=== PATIENT | female | born 1980 | race Caucasian/White ===

== ENCOUNTER 2023-05-04 11:33 | Outpatient (OUT) | payer BC, SELFPAY ==
[2023-05-04 12:20] LABS: Basophils Percent Auto 0.7 % (0.2-2.0); Eosinophils Absolute Auto 0.2 10^3/uL (0.0-0.7); Eosinophils Percent Auto 3.6 % (0.9-7.0); Hemoglobin 12.9 g/dL (12.0-16.0); Immature Granulocytes Abs Auto 0.03 10^3/uL (0.00-0.03); Immature Granulocytes Pct Auto 0.5 % (0.0-0.5); Lymphocytes Absolute Auto 1.6 10^3/uL (1.2-3.8); Lymphocytes Percent Auto 27.9 % (20.5-60.0); Mean Corpuscular HGB Conc 33.9 g/dL (29.9-35.2); Mean Corpuscular Hemoglobin 30.9 pg (26.7-34.0); Mean Corpuscular Volume 91.1 fL (81.0-99.0); Mean Platelet Volume 10.9 fL (9.5-13.5); Monocytes Absolute Auto 0.5 10^3/uL (0.3-0.8); Monocytes Percent Auto 9.1 % (1.7-12.0); Neutrophils Absolute Auto 3.3 10^3/uL (1.4-6.5); Neutrophils Percent Auto 58.2 % (43.0-75.0); Platelet Count 175 10^3/uL (150-450); Red Blood Count 4.17 10^6/uL (4.20-5.40); Red Cell Distribution Width 12.6 % (11.0-15.0); White Blood Count 5.6 10^3/uL (4.0-11.0)
[2023-05-04 13:24] LABS: Alanine Aminotransferase 9 U/L (14-59); Albumin Globulin Ratio 1.2; Alkaline Phosphatase 53 U/L (46-116); Anion Gap 14.4; BUN Creatinine Ratio 15.6; Bilirubin Total 0.3 mg/dL (0.2-1.0); Carbon Dioxide 24.5 mmol/L (21.0-32.0); Chloride 103 mmol/L (98-107); Chol HDL Ratio 5.1; Cholesterol 183 mg/dL (<=200); Estimated GFR (African America >60 (>=60); Estimated GFR (Non-African Ame >60 (>=60); Globulin 3.4 g/dL; Glucose 97 mg/dL (74-106); HDL Cholesterol 36 mg/dL (40-60); Potassium 3.9 mmol/L (3.5-5.1); Sodium 138 mmol/L (136-145); Thyroid Stimulating Hormone 0.525 uIU/mL (0.358-3.740); Total Protein 7.4 g/dL (6.4-8.2); Triglycerides 375 mg/dL (<=150)
[2023-05-04 14:08] LABS: Aspartate Amino Transferase <5 U/L (15-37)
[2023-05-04 17:04] LABS: Estimated Average Glucose 103 mg/dL; Glycohemoglobin A1C 5.2 % (4.5-6.2)
== END 2023-05-04 11:34 | disposition home or self-care (01) ==
LOC: LAB 11:37
PROVIDERS: PCP Internal Medicine; Visit Provider Internal Medicine
DX: Z00.00 Encounter for general adult medical examination without abnormal findings (principal)
CPT/HCPCS: 36415; 80053; 80061; 83036; 84443; 85025

== ENCOUNTER 2024-01-28 12:53 | Outpatient (OUT) | payer BC, SELFPAY ==
--- NOTE | 2024-01-28 12:55 | MM_ITS ---
Patient Name: KARIS BLOUNT MR#: [id number] : 1980 Exam Date: 01/28/2024 Ordering Doctor: DR Bennett Barrios D.O. RADIOLOGY REPORT PROCEDURE: MM TOMOSYNTHESIS SCREENING BI COMPARISON: MG MAMM SCREEN 3D ZAKI CAD, 12/04/2022. MG MAMM SCREEN 3D ZAKI CAD, 11/20/2021. MG MAMM SCREEN ZAKI W CAD, 11/14/2020. MG MAMM ZAKI SCRN W CAD DIG, 07/29/2016. INDICATIONS: screening Calculator Name NCI Breast Cancer Risk Assessment Tool 5 Year Breast Cancer Risk 0.90% Lifetime Breast Cancer Risk 8.40% Personal Breast Cancer No Personal Ovarian Cancer No Treatments removal with radiation Family Cancers Grandmother-maternal with breast cancer at age 50; Son with brain cancer at age 5. LOCATION: [facility] BREAST COMPOSITION: Heterogeneously dense,which may obscure small masses. FINDINGS: DIAGNOSTIC CATEGORY 2--BENIGN FINDING: RIGHT BREAST: No significant suspicious finding. Scattered benign-appearing lymph nodes are present. This exam includes additional mammographic views for implant evaluation and shows no visible implant abnormality. No significant change has occurred. LEFT BREAST: No significant suspicious finding. Scattered benign-appearing lymph nodes are present. This exam includes additional mammographic views for implant evaluation and shows no visible implant abnormality. No significant change has occurred. RECOMMENDATIONS: ROUTINE MAMMOGRAM AND CLINICAL EVALUATION IN 12 MONTHS. PLEASE NOTE: A NORMAL MAMMOGRAM DOES NOT EXCLUDE THE POSSIBILITY OF BREAST CANCER. A CLINICALLY SUSPICIOUS PALPABLE LUMP SHOULD BE BIOPSIED. Dictated by: Rodolfo Saleh M.D. on 01/29/2024 at 13:46 Approved by: Rodolfo Saleh M.D. on 01/29/2024 at 13:50
== END 2024-01-28 12:54 | disposition home or self-care (01) ==
LOC: MAMMO 12:53
PROVIDERS: PCP Internal Medicine; Visit Provider Internal Medicine
DX: Z12.31 Encounter for screening mammogram for malignant neoplasm of breast (principal); Z80.3 Family history of malignant neoplasm of breast; Z80.8 Family history of malignant neoplasm of other organs or systems
CPT/HCPCS: 77063; 77067

== ENCOUNTER 2024-06-27 08:32 | Outpatient (OUT) | payer BC, SELFPAY ==
[2024-06-27 09:00] LABS: Basophils Percent Auto 0.5 % (0.2-2.0); Eosinophils Absolute Auto 0.1 10^3/uL (0.0-0.7); Eosinophils Percent Auto 1.9 % (0.9-7.0); Hematocrit 38.2 % (36.0-48.0); Immature Granulocytes Abs Auto 0.02 10^3/uL (0.00-0.03); Immature Granulocytes Pct Auto 0.3 % (0.0-0.5); Lymphocytes Absolute Auto 1.6 10^3/uL (1.2-3.8); Mean Corpuscular Hemoglobin 31.4 pg (26.7-34.0); Mean Corpuscular Volume 92.3 fL (81.0-99.0); Mean Platelet Volume 11.2 fL (9.5-13.5); Monocytes Absolute Auto 0.5 10^3/uL (0.3-0.8); Monocytes Percent Auto 8.2 % (1.7-12.0); Neutrophils Absolute Auto 3.6 10^3/uL (1.4-6.5); Neutrophils Percent Auto 61.1 % (43.0-75.0); Platelet Count 194 10^3/uL (150-450); Red Blood Count 4.14 10^6/uL (4.20-5.40); Red Cell Distribution Width 12.7 % (11.0-15.0); White Blood Count 5.8 10^3/uL (4.0-11.0)
[2024-06-27 09:04] LABS: Estimated Average Glucose 103 mg/dL; Glycohemoglobin A1C 5.2 % (4.5-6.2)
[2024-06-27 10:18] LABS: Alanine Aminotransferase 20 U/L (14-59); Albumin Globulin Ratio 1.2; Alkaline Phosphatase 51 U/L (46-116); Anion Gap 11.9; Aspartate Amino Transferase 9 U/L (15-37); BUN Creatinine Ratio 20.9; Bilirubin Total 0.4 mg/dL (0.2-1.0); Chloride 100 mmol/L (98-107); Chol HDL Ratio 4.1; Cholesterol 181 mg/dL (<=200); Estimated GFR (African America >60 (>=60); Estimated GFR (Non-African Ame >60 (>=60); Globulin 3.4 g/dL; Glucose 93 mg/dL (74-106); HDL Cholesterol 44 mg/dL (40-60); Potassium 3.9 mmol/L (3.5-5.1); Sodium 135 mmol/L (136-145); Thyroid Stimulating Hormone 0.267 uIU/mL (0.358-3.740); Total Protein 7.4 g/dL (6.4-8.2); Triglycerides 247 mg/dL (<=150); VLDL CHOLESTEROL 49.4 mg/dL
== END 2024-06-27 08:33 | disposition home or self-care (01) ==
LOC: LAB 08:34
PROVIDERS: PCP Internal Medicine; Visit Provider Internal Medicine
DX: Z00.00 Encounter for general adult medical examination without abnormal findings (principal)
CPT/HCPCS: 36415; 80053; 80061; 83036; 84443; 85025

== ENCOUNTER 2024-07-19 10:36 | Outpatient (OUT) | payer BC, SELFPAY ==
--- NOTE | 2024-07-19 10:44 | US_ITS ---
The [address] [address] Patient Name: KARIS BLOUNT MRN: [id number] date: 1980 Sex: F Assigned Patient Location: US Current Patient Location: US Accession/Order Number: [id number] Exam Date: 07/19/2024 10:55 Report Date: 07/19/2024 14:23 At the request of: MIKHAIL FIERRO Procedure: US pelvis w/ transvaginal EXAMINATION: US pelvis w/ transvaginal HISTORY: Pain In Pelvis, Presence Of Intrauterine Contraceptive Devic COMPARISON: No relevant comparison available. FINDINGS: The uterus is normal in size, contour and echotexture measuring 9.9 x 5.0 x 4.4 cm. No focal myometrial mass. Endometrium measures 6.6 mm, normal. Normally positioned IUD The right ovary is normal in size measuring 3.6 x 2.8 x 2.4 cm. Normal color and Doppler flow. Area of anechoic echogenicity measuring 2 cm, simple cyst The left is normal in size measuring 3.1 x 2.8 x 1.8 cm. Normal color and Doppler flow. No free fluid US/US pelvis w/ transvaginal IMPRESSION: Normally positioned IUD Electronically authenticated by: ILAN CEJA Date: 07/19/2024 14:23
--- OUTSIDE RECORDS SUMMARY | 2024-07-19 10:55 | XMS_ITS | CCD ---
Author Organization [facility] Care Team Providers Care Press Worker Helper Name Role Phone WILLIAM ALFORD Unavailable Unavailabl BENNETT Jo Unavailable Unavailable BALL, DR ELIZONDO Admitting Unavailable BALL, DR ELIZONDO Attending Unavailable BALL, DR ELIZONDO Primary Care Unavailable BALL, DR ELIZONDO Consulting Unavailable WEST, DR ILAN Vines Consulting Unavailable BALL, DR ELIZONDO Admitting Unavailable BALL, DR ELIZONDO Attending Unavailable BALL, DR ELIZONDO Primary Care Unavailable BALL, DR ELIZONDO Consulting Unavailable BALL, DR ELIZONDO Admitting Unavailable BALL, DR ELIZONDO Attending Unavailable BALL, DR ELIZONDO Primary Care Unavailable BALL, DR ELIZONDO Consulting Unavailable ZieberRodolfo Consulting Unavailable GUS, LUKE Admitting Unavailable GUS, LUKE Attending Unavailable BALL, DR ELIZONDO Primary Care Unavailable GUS, LUKE Consulting Unavailable Ball, Bennett Unavailable Allergies Allergy Classification Reported Allergen(s) Allergy Type Date of Onset Reaction(s) Facility (1 source) Penicillins Drug allergy (disorder) 6 [facility] Repository (8 sources) penicillAMINE Drug Allergy [facility] [employer] Other (4 sources) Penicillin Drug Allergy 5 [facility] [employer] Other Medications Current Medications Medication Drug Class(es) Dates Sig (Normalized) Sig (Original) atenolol 50 mg oral tablet (12 sources) beta-Adrenergic Blossom Start: 05-31-2024 take 1 tablet by mouth twice daily Atenolol Active 0 .ROUTE .COMPLEX 180 May 31, 2024 12:53pm TAKE 1 TABLET BY MOUTH TWICE DAILY Start: 04-22-2024 End: 05-31-2024 take 50 mg by mouth twice daily Atenolol Discontinued 50 MG PO Twice daily April 22, 2024 7:47am May 31, 2024 12:53pm Start: 03-30-2024 End: 04-22-2024 take 1 tablet by mouth twice daily Atenolol Discontinued 0 .ROUTE .COMPLEX 180 March 30, 2024 12:54pm April 22, 2024 7:47am TAKE 1 TABLET BY MOUTH TWICE DAILY Start: 03-30-2024 End: 03-30-2024 take 50 mg by mouth twice daily Atenolol Discontinued 50 MG PO Twice daily March 30, 2024 12:00am March 30, 2024 12:54pm take 1 tablet by ju th twice daily Atenolol 50 MG TAKE 1 TABLET BY MOUTH TWICE A DAY for 90 days Active levothyroxine sodium 0.2 mg oral tablet (16 sources) l-Thyroxine Start: 04-22-2024 take 1 tablet by mouth once daily Levothyroxine Active 0 .ROUTE .COMPLEX 90 April 22, 2024 9:11am TAKE 1 TABLET BY MOUTH ONCE DAILY ON AN EMTPY STOMACH Start: 04-22-2024 End: 04-22-2024 take 200 ug by mouth once daily Levothyroxine Discontinued 200 MCG PO Daily April 22, 2024 12:00am April 22, 2024 9:11am Levothyroxine So dium 200 MCG TAKE 1 TABLET DAILY ON AN EMTPY STOMACH Orally Once a day for 90 days Active Levothyroxine So dium 200 MCG TAKE 1 (ONE) TABLET DAILY ON AN EMTPY STOMACH Active zolpidem tartrate 10 mg oral tablet (9 sources) gamma-Aminobutyric Acid-ergic Agonist Start: 04-22-2024 take 10 mg by mouth once daily at bedtime Zolpidem Active 10 MG PO Daily at bedtime April 22, 2024 12:00am Start: 11-10-2023 take 1 tablet by ju th once daily at bedtime Zolpidem Tartrate 10 MG TAKE 1 TABLET BY MOUTH AT BEDTIME Orally Once a day for 90 days Oct, Active Start: 11-08-2023 take 1 tablet by uj th once daily at bedtime Zolpidem Tartrate 10 MG TAKE 1 TABLET BY MOUTH AT BEDTIME Orally Once a day for 90 days Oct, Active Start: 10-21-2023 take 1 tablet by ju th once daily at bedtime Zolpidem Tartrate 10 MG TAKE 1 TABLET BY MOUTH AT BEDTIME Orally Once a day for 90 days 03 Umer, 2024 Active Start: 01-25-2023 take 1 tablet by mouth at bedt samina Zolpidem Tartrate 10 MG TAKE 1 TABLET BY MOUTH AT BEDTIME for 90 Jan, Active take 1 tablet by ju th every twenty-four hours Zolpidem Tartrate 10 MG 1 tablet at bedtime as needed Orally Once a day Active Completed/Discontinued Medications Medication Drug Class(es) Dates Sig (Normalized) Sig (Original) ciprofloxacin 3 mg/ml ophthalmic solution (8 sources) Quinolone Antimicrobial Start: 11-26-2022 Ciprofloxacin HCl 0.3 % 2 gtt Ophthalmic qid for 7 days Nov, Not-Taking/PRN Start: 11-26-2022 Ciprofloxacin HCl 0.3 % 2 gtt Ophthalmic qid for 7 days Nov, Not-Taking cyclobenzaprine hydrochloride 10 mg oral tablet (8 sources) Muscle Relaxant Start: 07-02-2021 Flexeril 10mg 1 Oral tid prn Take as needed for back pain and spasms. Jun, Not-Taking/PRN ibuprofen 600 mg oral tablet (8 sources) Nonsteroidal Anti-inflammatory Drug Start: 07-02-2021 take 1 tablet by mouth three times daily at mealtime as needed Ibuprofen 600 MG 1 tablet with food or milk as needed Orally Three times a day for 10 day(s) as needed for pain Jun, Not-Taking/PRN lidocaine 0.05 mg/mg medicated patch (8 sources) Antiarrhythmic, Amide Local Anesthetic Start: 07-02-2021 Lidocaine 5 % 1 patch remove after 12 hours Externally Once a day for 10 day(s) as needed for back pain Jun, Not-Taking/PRN predniSONE 20 mg oral tablet (8 sources) Start: 07-02-2021 take 1 tablet by mouth every twelve hours predniSONE 20 MG 1 tablet Orally bid for 5 day(s) Jun, Not-Taking/PRN Toradol 30 mg/ml (8 sources) Start: 07-02-2021 Toradol 30 mg/ml Jun, 30 mg Triamcinolone (8 sources) Corticosteroid Start: 07-02-2021 KENALOG - 10 mg Jun, 40 mg Problems Active Problems Problem Classification Problem Date Documented Date Episodic/Chronic Abdominal pain (1 source) Pain in pelvis; Translations: [Pelvic and perineal pain] 07-13-2024 Episodic Anxiety disorders (12 sources) Generalized anxiety disorder; Translations: [Generalized anxiety disorder] Chronic Cardiac dysrhythmias (15 sources) Intermittent palpitations; Translations: [Palpitations] Episodic Complications of surgical procedures or medical care (13 sources) Postoperative hypothyroidism; Translations: [Postprocedural hypothyroidism] Chronic Disorders of lipid metabolism (16 sources) Hypertriglyceridemia ; Translations: [Pure hyperglyceridemia] Onset: 07-31-2016 Chronic Inflammation; infection of eye (except that caused by tuberculosis or sexually transmitteddisease) (5 sources) Unspecified acute conjunctivitis, bilateral; Translations: [Acute conjunctivitis] Episodic Miscellaneous mental health disorders (4 sources) Primary insomnia; Translations: [Primary insomnia] Chronic Other non-traumatic joint disorders (8 sources) Arthralgia of the pelvic region and thigh; Translations: [Pain in right hip] Episodic Other non-traumatic joint disorders (4 sources) Pain in right hip joint; Translations: [Pain in right hip] Episodic Other nutritional; endocrine; and metabolic disorders (4 sources) Overweight; Translations: [Overweight] Episodic Other nutritional; endocrine; and metabolic disorders (1 source) Overweight Episodic Other screening for suspected conditions (not mental disorders or infectious disease) (13 sources) Encounter for screening mammogram for malignant neoplasm of breast; Translations: [Abnormal findings on diagnostic imaging of breast] Onset: 07-29-2016 Episodic Residual codes; unclassified (1 source) Family history of malignant neoplasm of breast; Translations: [FAMILY HX MALIG NEOPLASM OF BREAST] Onset: 12-09-2022 Episodic Residual codes; unclassified (1 source) Family history of malignant neoplasm of other organs or systems; Translations: [FAM HX MALIG NEOPLASM OTH ORGN/SYS] Onset: 12-09-2022 Episodic Spondylosis; intervertebral disc disorders; other back problems (4 sources) Low back pain; Translations: [Low back pain, unspecified] Episodic Thyroid disorders (6 sources) Hypothyroidism; Translations: [Hypothyroidism, unspecified] Onset: 08-02-2014 06-05-2024 Chronic Unclassified (2 sources) CONTACT W/AND (SUSP) EXPOS COVID-19; Translations: [CONTACT W/AND (SUSP) EXPOS COVID-19] Onset: 10-15-2022 Viral infection (1 source) COVID-19; Translations: [COVID-19] Onset: 10-15-2022 Past or Other Problems Problem Classification Problem Date Documented Date Episodic/Chronic Fracture of lower limb (4 sources) Closed fracture of phalanx of foot; Translations: [Displaced fracture of proximal phalanx of right lesser toe(s), initial encounter for closed fracture] Onset: 05-10-2018 Episodic Immunizations and screening for infectious disease (1 source) Encounter for screening for human papillomavirus (HPV); Translations: [Encounter for screening for human papillomavirus (HPV)] Onset: 07-21-2017 Episodic Medical examination/evaluatio n (1 source) Encounter for gynecological examination (general) (routine) without abnormal findings; Translations: [Encounter for gynecological examination (general) (routine) without abnormal findings] Onset: 07-21-2017 Episodic Other connective tissue disease (4 sources) Pain in limb; Translations: [Pain in right toe(s)] Onset: 05-10-2018 Episodic Other non-traumatic joint disorders (4 sources) Pain in right hip; Translations: [PAIN IN RIGHT HIP] Onset: 2022 Episodic Unclassified (1 source) CONTACT W/AND (SUSP) EXPOS COVID-19; Translations: [CONTACT W/AND (SUSP) EXPOS COVID-19] Onset: 10-07-2022 Results Test Name Value Interpretation Reference Range Facility Basophils Auto (Bld) [#/Vol] on 06-27-2024 Basophils (Bld) [#/Vol] 0.0 10 3/uL 0.0-0.1 [facility] Basophils/100 WBC Auto (Bld) on 06-27-2024 Basophils/100 WBC (Bld) 0.5 % 0.2-2.0 [facility] Cholesterol in LDL Calc [Mas s/Vol]on 06-27-2024 Cholesterol in LDL [Mass/Vol] 88.0 mg/dL [facility] Comment on above: <100 mg/dl [id number] 0-129 mg/dl NEAR OR ABOVE [id number] mg/dl BORDERLINE [id number] mg/dl HIGH>190 mg/dl VERY HIGH Cholesterol in VLDL Calc [Ma ss/Vol]on 06-27-2024 Cholesterol in VLDL [Mass/Vol] 49.4 mg/dL [facility] Eosinophils/100 WBC Auto (Bl d)on 06-27-2024 Eosinophils/100 WBC (Bld) 1.9 % 0.9-7.0 [facility] Erythrocyte distribution wid th Auto (RBC) [Ratio]on 06-27-2024 Erythrocyte distribution width (RBC) [Ratio] 12.7 % 11.0-15.0 [facility] Estimated glomerular filtrat ion rate (GFR) non- Americanon 06-27-2024 GFR/1.73 sq M.predicted among non-blacks MDRD (S/P/Bld) [Vol rate/Area] mL/min/{1.73_m2} >=60 [facility] Globulin Calc (S) [Mass/Vol] on 06-27-2024 Globulin (S) [Mass/Vol] 3.4 g/dL [facility] Glucose mean value [Mass/vol ume] in Blood Estimated from glycated hemoglobinon 06-27-2024 Average glucose Estimated from glycated hemoglobin (Bld) [Mass/Vol] 103 mg/dL [facility] Hematocrit Auto (Bld) [Volum e fraction]on 06-27-2024 Hematocrit (Bld) [Volume fraction] 38.2 % 36.0-48.0 [facility] Hemoglobin [Mass/volume] in Bloodon 06-27-2024 Hemoglobin (Bld) [Mass/Vol] 13.0 g/dL 12.0-16.0 [facility] Laboratory - Chemistry and C hemistry - challengeon 06-27-2024 Albumin [Mass/Vol] 4.0 g/dL 3.4-5.0 [facility] ALP [Catalytic activity/Vol] 51 U/L 46-116 [facility] ALT [Catalytic activity/Vol] 20 U/L 14-59 [facility] AST [Catalytic activity/Vol] 9 U/L Low 15-37 [facility] Bilirubin [Mass/Vol] 0.4 mg/dL 0.2-1.0 [facility] Calcium [Mass/Vol] 9.0 mg/dL 8.5-10.1 [facility] Chloride [Moles/Vol] 100 mmol/L 98-107 [facility] Cholesterol [Mass/Vol] 181 mg/dL <=200 [facility] Cholesterol in HDL [Mass/Vol] 44 mg/dL 40-60 [facility] Comment on above: > or =60 mg/dl - LOW CARDIOVASCULAR RISK<40 mg/dl - HIGH CARDIOVASCULAR RISK CO2 [Moles/Vol] 27.0 mmol/L 21.0-32.[address] [facility] Creatinine [Mass/Vol] 0.67 mg/dL 0.55-1.02 [facility] GFR/1.73 sq M.predicted MDRD (S/P/Bld) [Vol rate/Area] mL/min/{1.73_m2} >=60 [facility] Glucose [Mass/Vol] 93 mg/dL 74-106 [facility] Potassium [Moles/Vol] 3.9 mmol/L 3.5-5.1 [facility] Protein [Mass/Vol] 7.4 g/dL 6.4-8.2 [facility] Sodium [Moles/Vol] 135 mmol/L Low 136-145 [facility] Triglyceride [Mass/Vol] 247 mg/dL High <=150 [facility] TSH Qn 0.267 m[IU]/L Low 0.358-3.74 0 [facility] Urea nitrogen [Mass/Vol] 14.0 mg/dL 7.0-18.0 [facility] Urea nitrogen/Creatini ne [Mass ratio] 20.9 mg/mg [facility] Laboratory - Hematology and Cell countson 06-27-2024 HbA1c (Bld) [Mass fraction] 5.2 % 4.5-6.2 [facility] Comment on above: ADA RECOMMENDED LIMI T 4.0 - 6.0ADA THERAPEUTIC TARGET < 7.0ACTION SUGGESTED> 7.0 Immature granulocytes/100 WBC (Bld) 0.3 % 0.0-0.5 [facility] Leukocytes [#/volume] correc adrián for nucleated erythrocytes in Blood by Automated counon 06-27-2024 WBC corrected for nucl RBC Auto (Bld) [#/Vol] 5.8 10 3/uL 4.0-11.0 [facility] Lymphocytes Auto (Bld) [#/Vo l]on 06-27-2024 Lymphocytes (Bld) [#/Vol] 1.6 10 3/uL 1.2-3.8 [facility] Lymphocytes/100 WBC Auto (Bl d)on 06-27-2024 Lymphocytes/100 WBC (Bld) 28.0 % 20.5-60.0 [facility] MCH Auto (RBC) [Entitic mass ]on 06-27-2024 MCH (RBC) [Entitic mass] 31.4 pg 26.7-34.0 [facility] MCHC Auto (RBC) [Mass/Vol]on 06-27-2024 MCHC (RBC) [Mass/Vol] 34.0 g/dL 29.9-35.2 [facility] MCV Auto (RBC) [Entitic vol] on 06-27-2024 MCV (RBC) [Entitic vol] 92.3 fL 81.0-99.0 [facility] Monocytes Auto (Bld) [#/Vol] on 06-27-2024 Monocytes (Bld) [#/Vol] 0.5 10 3/uL 0.3-0.8 [facility] Monocytes/100 WBC Auto (Bld) on 06-27-2024 Monocytes/100 WBC (Bld) 8.2 % 1.7-12.0 [facility] Neutrophils Auto (Bld) [#/Vo l]on 06-27-2024 Neutrophils (Bld) [#/Vol] 3.6 10 3/uL 1.4-6.5 [facility] Neutrophils/100 WBC Auto (Bl d)on 06-27-2024 Neutrophils/100 WBC (Bld) 61.1 % 43.0-75.0 [facility] No Panel Informationon 06-27 Eosinophils # (Auto) 0.1 10 3/uL 0.0-0.7 [facility] Immature Granulocyte # (Auto) 0.02 10 3/uL 0.00-0.03 [facility] Platelet mean volume Auto (B ld) [Entitic vol]on 06-27-2024 Platelet mean volume (Bld) [Entitic vol] 11.2 fL 9.5-13.5 [facility] Platelets Auto (Bld) [#/Vol] on 06-27-2024 Platelets (Bld) [#/Vol] 194 10 3/uL 150-450 [facility] RBC Auto (Bld) [#/Vol]on RBC (Bld) [#/Vol] 4.14 10 6/uL Low 4.20-5.40 [facility] Serum or plasma albumin/glob ulin mass ratioon 06-27-2024 Albumin/Globulin [Mass ratio] 1.2 {ratio} [facility] Serum or plasma anion gap de terminationon 06-27-2024 Anion gap [Moles/Vol] 11.9 mmol/L [facility] Serum or plasma total choles terol/high density lipoprotein (HDL) cholesterol mass evelyne 06-27-2024 Cholesterol.total /Cholesterol in HDL [Mass ratio] 4.1 {ratio} [facility] Comment on above: 3.3 - 4.4 LOW RISK4. 4 - 7.1 AVERAGE RISK7.1 - 11.0 MODERATE RISK>11.0 HIGH RISK MG MAMM SCREEN 3D ZAKI CADon 12-04-2022 MG MAMM SCREEN 3D ZAKI CAD Patient: RADHA BLOUNT Exam Date: 12/04/2022 : 1980 Gender:F Ordering : DR BENNETT FIERRO D.O. Admission #: [id number] Family : Order #: [id number] CLICK HERE TO VIEW EXAM RADIOLOGY REPORT PROCEDURE: MAMMOGRAM SCREENING 3D BILATERAL CAD COMPARISON: MG MAMM SCREEN ZAKI W CAD, 11/14/2020. MG MAMM SCREEN 3D ZAKI CAD, 11/20/2021. INDICATIONS: Screening mammography Calculator Name NCI Breast Cancer Risk Assessment Tool 5 Year Breast Cancer Risk 0.90% Lifetime Breast Cancer Risk 8.60% Personal Breast Cancer No Personal Ovarian Cancer No Treatments removal with radiation Family Cancers Grandmother-maternal with breast cancer at age 50; Son with brain cancer at age 5. LOCATION: [facility] BREAST COMPOSITION: Heterogeneously dense,which may obscure small masses. FINDINGS: DIAGNOSTIC CATEGORY 2--BENIGN FINDING. NO CHANGE FROM COMPARISON. Scattered benign-appearing nodules are present. Scattered benign-appearing calcifications are present. Scattered benign-appearing lymph nodes are present. This exam includes additional mammographic views for implant evaluation and shows no visible implant abnormality. RIGHT BREAST: No significant suspicious finding. LEFT BREAST: No significant suspicious finding. RECOMMENDATIONS: ROUTINE MAMMOGRAM AND CLINICAL EVALUATION IN 12 MONTHS. PLEASE NOTE: A NORMAL MAMMOGRAM DOES NOT EXCLUDE THE POSSIBILITY OF BREAST CANCER. A CLINICALLY SUSPICIOUS PALPABLE LUMP SHOULD BE BIOPSIED. Dictated by: Ilan Perdue MD on 12/04/2022 at 12:46 Approved by: Ilan Perdue MD on 12/04/2022 at 12:49 Normal [facility] MG MAMM SCREEN 3D ZAKI CAD [employer] Other Covid-19 PCR (CVDTB)on 09-19 SARS-CoV-2 (COVID-19) RNA ENEDELIA+probe Ql (Unsp spec) Detected Critically abnormal NOT DETECTED [facility] Comment on above: Result Comment: This test is not yet approved or cleared by the [place] FDA. When there are no FDA-approved or cleared tests available, and other criteria are met, FDA can make tests available under an emergency access mechanism called an Emergency Use Authorization (EUA). The EUA for this test is supported by the [place] of Health and Human Service's declaration that circumstances exist to justify the emergency use of in vitro diagnostics for the detection and/or diagnosis of the virus that causes COVID-19. This EUA will remain in effect for the duration of the COVID-19 declaration justifying emergency of IVDs, unless it is terminated or revoked by the FDA (after which the test may no longer be used). Performed By: #### C VDTBH #### [facility] [address] [place] [address] Dr. Billy Johnson CBC AUTO DIFFon 05-12-2022 BASO # 0.1 103/ul Normal 0.0-0.1 [facility] Comment on above: Performed By: #### C BC #### [facility] [address] [place] [address] Dr. Billy Johnson Basophils/100 WBC (Bld) 0.9 % Normal 0.2-2.0 [facility] Comment on above: Performed By: #### C BC #### [facility] [address] [place] [address] Dr. Billy Johnson EO # 0.2 103/ul Normal 0.0-0.7 [facility] Comment on above: Performed By: #### C BC #### [facility] [address] [place] [address] Dr. Billy Johnson Eosinophils/100 WBC (Bld) 3.6 % Normal 0.9-7.0 [facility] Comment on above: Performed By: #### C BC #### [facility] [address] [place] [address] Dr. Billy Johnson Erythrocyte distribution width (RBC) [Ratio] 12.9 % Normal 11.0-15.0 [facility] Comment on above: Performed By: #### C BC #### [facility] [address] [place] [address] Dr. Billy Johnson Hematocrit (Bld) [Volume fraction] 38.9 % Normal 36.0-48.0 [facility] Comment on above: Performed By: #### C BC #### [facility] [address] [place] [address] Dr. Billy Johnson Hemoglobin (Bld) [Mass/Vol] 13.0 g/dL Normal 12.0-16.0 [facility] Comment on above: Performed By: #### C BC #### [facility] [address] [place] [address] Dr. Billy Johnson IG # 0.02 10e3/ul Normal 0.00-0.03 [facility] Comment on above: Performed By: #### C BC #### [facility] [address] [place] [address] Dr. Billy Johnson IG % 0.4 % Normal 0.0-0.5 [facility] Comment on above: Performed By: #### C BC #### [facility] [address] [place] [address] Dr. Billy Johnson LYMPH # 1.7 103/ul Normal 1.2-3.8 [facility] Comment on above: Performed By: #### C BC #### [facility] [address] [place] [address] Dr. Billy Johnson Lymphocytes/100 WBC (Bld) 30.6 % Normal 20.5-60.0 [facility] Comment on above: Performed By: #### C BC #### [facility] [address] [place] [address] Dr. Billy Johnson MANUAL DIFF REQ NO Normal [facility] Comment on above: Performed By: #### C BC #### [facility] [address] [place] [address] Dr. Billy Johnson MCH (RBC) [Entitic mass] 31.0 pg Normal 26.7-34.0 [facility] Comment on above: Performed By: #### C BC #### [facility] [address] [place] [address] Dr. Billy Johnson MCHC (RBC) [Mass/Vol] 33.4 g/dL Normal 29.9-35.2 [facility] Comment on above: Performed By: #### C BC #### [facility] [address] [place] [address] Dr. Billy Johnson MCV (RBC) [Entitic vol] 92.8 fL Normal 81.0-99.0 [facility] Comment on above: Performed By: #### C BC #### [facility] [address] [place] [address] Dr. Billy Johnson MONO # 0.5 103/ul Normal 0.3-0.8 [facility] Comment on above: Performed By: #### C BC #### [facility] [address] [place] [address] Dr. Billy Johnson Monocytes/100 WBC (Bld) 8.0 % Normal 1.7-12.0 [facility] Comment on above: Performed By: #### C BC #### [facility] [address] [place] [address] Dr. Billy Johnson NEUT # 3.2 103/ul Normal 1.4-6.5 [facility] Comment on above: Performed By: #### C BC #### [facility] [address] [place] [address] Dr. Billy Johnson Neutrophils/100 WBC (Bld) 56.5 % Normal 43.0-75.0 [facility] Comment on above: Performed By: #### C BC #### [facility] [address] [place] [address] Dr. Billy Johnson Platelet mean volume (Bld) [Entitic vol] 10.9 fL Normal 9.5-13.5 [facility] Comment on above: Performed By: #### C BC #### [facility] [address] [place] [address] Dr. Billy Johnson PLT 175 103/ul Normal 150-450 [facility] Comment on above: Performed By: #### C BC #### [facility] [address] [address] [address] Billy Johnson RBC 4.19 106/ul Critically low 4.20-5.40 [facility] Comment on above: Performed By: #### C BC #### [facility] [address] [address] [address] Billy Johnson WBC 5.6 103/ul Normal 4.0-11.0 [facility] Comment on above: Performed By: #### C BC #### [facility] [address] [address] [address] Billy Johnson GLYCOHEMOGLOBIN A1Con 2021 ADA RECOMMENDATION SEE BELOW Normal [facility] Comment on above: Result Comment: ADA RECOMMENDED LIMIT 4.0 - 6.0 ADA THERAPEUTIC TARGET < 7.0 ACTION SUGGESTED > 7.0 Performed By: #### A 1C #### [facility] [address] [place] [address] Dr. Billy Johnson Glucose [Mass/Vol] 108 mg/dL Normal [facility] Comment on above: Performed By: #### A 1C #### [facility] [address] [place] [address] Dr. Billy Johnson HbA1c (Bld) [Mass fraction] 5.4 % Normal 4.5-6.2 [facility] Comment on above: Performed By: #### A 1C #### [facility] [address] [place] [address] Dr. Billy Johnson LIPID PROFILEon 05-12-2022 CHOL-HDL RATIO NORM SEE BELOW Normal [facility] Comment on above: Result Comment: 3.3 - 4.4 LOW RISK 4.4 - 7.1 AVERAGE RISK 7.1 - 11.0 MODERATE RISK >11.0 HIGH RISK Performed By: #### T SH, LIPID, CMP #### [facility] [address] [address] [address] Billy Johnson Cholesterol [Mass/Vol] 200 mg/dL Normal <=200 [facility] Comment on above: Performed By: #### T SH, LIPID, CMP #### [facility] [address] [address] [address] Billy Johnson Cholesterol in HDL [Mass/Vol] 38 mg/dL Critically low 40-60 [facility] Comment on above: Performed By: #### T SH, LIPID, CMP #### [facility] [address] [place] [address] Dr. Billy Johnson Cholesterol in LDL [Mass/Vol] 90.2 mg/dL Normal [facility] Comment on above: Performed By: #### T SH, LIPID, CMP #### [facility] [address] [place] [address] Dr. Billy Johnson Cholesterol.total /Cholesterol in HDL [Mass ratio] 5.3 {ratio} Normal [facility] Comment on above: Performed By: #### T SH, LIPID, CMP #### [facility] [address] [place] [address] Dr. Billy Johnson HDL NORMAL > or = 60 mg/dl - LO W CARDIOVASCULAR RISK <40 mg/dl - HIGH CARDIOVASCULAR RISK Normal [facility] Comment on above: Performed By: #### T SH, LIPID, CMP #### [facility] [address] [place] [address] Dr. Billy Johnson LDL CALC NORMAL SEE BELOW Normal [facility] Comment on above: Result Comment: <100 mg/dl OPTIMAL 100 - 129 mg/dl NEAR OR ABOVE OPTIMAL 130 - 159 mg/dl BORDERLINE HIGH 160 - 189 mg/dl HIGH >190 mg/dl VERY HIGH Performed By: #### T SH, LIPID, CMP #### [facility] [address] [place] [address] Dr. Billy Johnson Triglyceride [Mass/Vol] 359 mg/dL Critically high <=150 [facility] Comment on above: Performed By: #### T SH, LIPID, CMP #### [facility] [address] [address] [address] Billy Johnson VLDL CALC 71.8 mg/dL Normal [facility] Comment on above: Performed By: #### T SH, LIPID, CMP #### [facility] [address] [address] [address] Billy Johnson PROF 14(COMP METB)on 022 Albumin [Mass/Vol] 3.9 g/dL Normal 3.4-5.0 [facility] Comment on above: Performed By: #### T SH, LIPID, CMP #### [facility] [address] [address] [address] Billy Johnson Albumin/Globulin [Mass ratio] 1.2 {ratio} Normal [facility] Comment on above: Performed By: #### T SH, LIPID, CMP #### [facility] [address] [address] [address] Billy Johnson ALP [Catalytic activity/Vol] 41 U/L Critically low 46-116 [facility] Comment on above: Performed By: #### T SH, LIPID, CMP #### [facility] [address] [address] [address] Billy Johnson ALT [Catalytic activity/Vol] 18 U/L Normal 14-59 [facility] Comment on above: Performed By: #### T SH, LIPID, CMP #### [facility] [address] [address] [address] Billy Johnson Anion gap [Moles/Vol] 9.4 mmol/L Normal [facility] Comment on above: Performed By: #### T SH, LIPID, CMP #### [facility] [address] [address] [address] Billy Johnson AST [Catalytic activity/Vol] 13 U/L Critically low 15-37 [facility] Comment on above: Performed By: #### T SH, LIPID, CMP #### [facility] [address] [address] [address] Billy Johnson Bilirubin [Mass/Vol] 0.5 mg/dL Normal 0.2-1.0 [facility] Comment on above: Performed By: #### T SH, LIPID, CMP #### [facility] [address] [address] [address] Billy Johnson Calcium [Mass/Vol] 8.8 mg/dL Normal 8.5-10.1 [facility] Comment on above: Performed By: #### T SH, LIPID, CMP #### [facility] [address] [address] [address] Billy Johnson Chloride [Moles/Vol] 105 mmol/L Normal 98-107 [facility] Comment on above: Performed By: #### T SH, LIPID, CMP #### [facility] [address] [place] [address] Dr. Billy Johnson CO2 [Moles/Vol] 27.7 mmol/L Normal 21.0-32.0 [facility] Comment on above: Performed By: #### T SH, LIPID, CMP #### [facility] [address] [place] [address] Dr. Billy Johnson Creatinine [Mass/Vol] 0.67 mg/dL Normal 0.55-1.02 [facility] Comment on above: Performed By: #### T SH, LIPID, CMP #### [facility] [address] [place] [address] Dr. Billy Johnson EGFR-AF GUYANESE >60 Normal >=60 [facility] Comment on above: Performed By: #### T SH, LIPID, CMP #### [facility] [address] [place] [address] Dr. Billy Johnson EGFR-NON AF GUYANESE >60 Normal >=60 [facility] Comment on above: Performed By: #### T SH, LIPID, CMP #### [facility] [address] [place] [address] Dr. Billy Johnson Globulin (S) [Mass/Vol] 3.3 g/dL Normal [facility] Comment on above: Performed By: #### T SH, LIPID, CMP #### [facility] [address] [place] [address] Dr. Billy Johnson Glucose [Mass/Vol] 90 mg/dL Normal 74-106 [facility] Comment on above: Performed By: #### T BHANU LIPID, CMP #### [facility] [address] [place] [address] Dr. Billy Johnson Potassium [Moles/Vol] 4.1 mmol/L Normal 3.5-5.1 [facility] Comment on above: Performed By: #### T BHANU LIPID, CMP #### [facility] [address] [place] [address] Dr. Billy Johnson Protein [Mass/Vol] 7.2 g/dL Normal 6.4-8.2 [facility] Comment on above: Performed By: #### T BHANU LIPID, CMP #### [facility] [address] [place] [address] Dr. Billy Johnson Sodium [Moles/Vol] 138 mmol/L Normal 136-145 [facility] Comment on above: Performed By: #### T BHANU LIPID, CMP #### [facility] [address] [place] [address] Dr. Billy Johnson Urea nitrogen [Mass/Vol] 14.0 mg/dL Normal 7.0-18.0 [facility] Comment on above: Performed By: #### T BHANU LIPID, CMP #### [facility] [address] [place] [address] Dr. Billy Johnson Urea nitrogen/Creatini ne [Mass ratio] 20.9 mg/mg Normal [facility] Comment on above: Performed By: #### T BHANU LIPID, CMP #### [facility] [address] [place] [address] Dr. Billy Johnson TSHon 05-12-2022 TSH 1.434 uIU/mL Normal 0.358-3.74 0 [facility] Comment on above: Performed By: #### T BHANU LIPID, CMP #### [facility] [address] [place] [address] Dr. Billy Johnson Cytologyon 07-21-2017 Cytology (NOTE)[id number] LABORATORIESCONSULTING PATHOLOGISTS CORPORATIONANATOMIC [id number] [place] [phone] Fax: GYNECOLOGIC CYTOLOGY REPORTPatient Name: RADHA BLOUNTMR#: [id number] #[id number]: Cervical material, (ThinPrep vial, Imaging-assisted review)Clinical [id number] Routine manager of distribution exam without abnormal findingsHigh risk HPV DNA testing is requested if the diagnosis is [id number] Encounter for screening for HPVLMP: not having periodsINTERPRETATIONCervical material, (ThinPrep vial, Imaging-assisted review):Specimen Adequacy: Satisfactory for evaluation. - Endocervical/transformation zone component present. - Partially obscuring exudate.Descriptive Diagnosis: Negative for intraepithelial lesion or malignancy. Folder Taper Operator: MAY Cheng(ASCP)Electronically Signed Out07/28/2017 [facility] Vital Signs Date Time Vital Sign Value Performing Clinician Facility 07-13-2024 09:57-0400 Body height 176.53 cm [facility] 07-13-2024 09:57-0400 Body mass index (BMI) [Ratio] 26.3 kg/m2 [facility] 07-13-2024 09:57-0400 Body weight 82.1 kg [facility] 07-13-2024 09:57-0400 Heart rate 70 /min [facility] 07-13-2024 09:57-0400 SaO2% (BldA) [Mass fraction] 98 % [facility] 05-21-2023 10:30-0400 Body height 177.8 cm Nintu Oy Other [facility] Other 05-21-2023 10:30-0400 Body mass index (BMI) [Ratio] 26 kg/m2 Nintu Oy Other [facility] Other 05-21-2023 10:30-0400 Body weight 82.19 kg Bennett [employer] Other [facility] Other 05-21-2023 10:30-0400 Diastolic blood pressure 70 mm[Hg] Nintu Oy Other [facility] Other 05-21-2023 10:30-0400 Respiratory rate 12 /min Bennett Ball Other [facility] Other 05-21-2023 10:30-0400 Systolic blood pressure 113 mm[Hg] Bennett Ball Other [facility] Other 11-26-2022 12:45-0500 Body height 177.8 cm Bennett Ball Other [facility] Other 11-26-2022 12:45-0500 Body mass index (BMI) [Ratio] 25.57 kg/m2 Bennett Ball Other [facility] Other 11-26-2022 12:45-0500 Body weight 80.83 kg Bennett Ball Other [facility] Other 11-26-2022 12:45-0500 Diastolic blood pressure 70 mm[Hg] Bennett Ball Other [facility] Other 11-26-2022 12:45-0500 Respiratory rate 12 /min Bennett Ball Other [facility] Other 11-26-2022 12:45-0500 Systolic blood pressure 116 mm[Hg] Bennett Ball Other [facility] Other Encounters Encounter Date Encounter Type Care Provider Facility Start: 07-13-2024 End: 07-13-2024 ambulatory [facility] Work Phone: Start: 07-13-2024 End: 07-13-2024 Encounter for general adult medical examination without abnormal findings [facility] Start: 07-13-2024 End: 07-13-2024 Patient encounter procedure [facility] Work Phone: Start: 07-10-2024 Patient encounter status [facility] Start: 06-27-2024 Non-patient / Non-visit [facility] Work Phone: Start: 04-22-2024 Non-patient / Non-visit [facility] Work Phone: Start: 11-10-2023 End: 11-10-2023 ambulatory Bennett Ball Other [facility] Other Start: 11-10-2023 Telephone encounter Bennett Ball [facility] Start: 11-08-2023 End: 11-08-2023 ambulatory Bennett Ball Other [facility] Other Start: 11-08-2023 Telephone encounter Bennett Ball [facility] Start: 10-21-2023 End: 10-21-2023 ambulatory Bennett Ball Other [facility] Other Start: 10-21-2023 Telephone encounter Bennett Ball [facility] Start: 05-21-2023 End: 05-21-2023 ambulatory Bennett Ball Other [facility] Other Start: 05-21-2023 Encounter for genera l adult medical examination without abnormal findings Bennett Ball [facility] Start: 05-21-2023 Periodic preventive med est patient 40-64yrs Bennett Ball [facility] Start: 04-06-2023 End: 04-06-2023 ambulatory Bennett Ball Other [facility] Other Start: 04-06-2023 Encounter for genera l adult medical examination without abnormal findings Bennett Ball [facility] Start: 04-06-2023 Telephone encounter Bennett Ball [facility] Start: 03-19-2023 End: 03-19-2023 ambulatory Bennett Ball Other [facility] Other Start: 03-19-2023 Telephone encounter Bennett Ball [facility] Start: 12-04-2022 End: 12-05-[address] BENNETT FIERRO Facility:[facility] Start: 11-26-2022 End: 11-26-2022 ambulatory Bennett Fierro Other [facility] Other Start: 11-26-2022 Office outpatient vi sit 15 minutes Bennett Fierro [facility] Start: 11-26-2022 Telephone encounter Bennett Fierro [facility] Start: 10-07-2022 End: 10-07-2022 ambulatory LUKE GUS Facility:[facility] Start: 2022 End: 05-15-[address] BENNETT FIERRO Facility:[facility] Start: 05-13-2022 Encounter for genera l adult medical examination without abnormal findings DR BENNETT FIERRO [facility] Start: 05-13-2022 Adult health examination Bennett Fierro Other [facility] Other Start: 05-12-2022 End: 05-13-[address] BENNETT FIERRO Facility:[facility] Start: 05-12-2022 End: 05-13-2022 Encounter for general adult medical examination without abnormal findings DR BENNETT FIERRO Facility:[facility] Start: 07-21-2017 End: 07-22-2017 Ambulatory [facility] Procedures Date Procedure Procedure Detail Performing Clinician Start: 07-21-2017 Cytopathology proced ure, preparation of smear, genital source WILLIAM ALFORD Depression screening Gerardo Fierro Other Screening for malign ant neoplasm of breast Bennett Fierro Other Plan of Treatment Date Care Activity Detail Author MG Breast - bilateral Screening [facility] US Pelvis [facility] Immunizations Immunization Date Immunization Notes Care Provider Fa dusty 05-08-2021 COVID-19 Vaccine Mod caity - Documentation Purposes Only Bennett Fierro Other [facility] Payers Date Payer Category Payer Unknown [id number] 2019 Unknown [id number] 2016 Unknown [id number] 1978 Unknown [id number] [id number] [id number] 1978 Unknown [id number] [id number] [id number] 1978 Unknown [id number] 2.16.84 [id number] 1978 Unknown [id number] 2.16.84 [id number] Social History Date Type Detail Facility Unknown if ever smoked [facility] Other Sex Assigned At Sex Assigned At Bir th [facility] Other Start: 07-13-2024 Tobacco smoking status NHIS Never smoked tobacco (finding) [facility] Start: 1980 Sex Assigned At Female [facility] Evaluation note 11-10-2023 Note Date & Type Note Facility 11-10-2023 Evaluation note Encounter Date Diagnosis Assessment Notes Oct, Primary insomnia (ICD-10 - F51.01) [facility] Other Evaluation note 11-08-2023 Note Date & Type Note Facility 11-08-2023 Evaluation note Encounter Date Diagnosis Assessment Notes Oct, Primary insomnia (ICD-10 - F51.01) [facility] Other Evaluation note 05-21-2023 Note Date & Type Note Facility 05-21-2023 Evaluation note Encounter Date Diagnosis Assessment Notes May, Wellness examination (ICD-10 - Z00.00) Healthy diet and exercise. Reviewed age-appropriate preventive testing recommended. May, Intermittent palpitations (ICD-10 - R00.2) Avoid stimulants, hydrate and exercise. 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 They are instructed to reduce calories, portion sizes and snacks. It is recommended that they exercise for 30 minutes, 3-5 times weekly. May, Screening mammogram for breast cancer (ICD-10 - Z12.31) Monthly SBE and yearly mammogram May, Screening for colon cancer (ICD-10 - Z12.11) Initial screening discussed. Low risk, asymptomatic patient - denies change in appetite, weight or bowel habits - denies heartburn or dysphagia - denies melena or hematochezia [facility] Other Evaluation note 04-06-2023 Note Date & Type Note Facility 04-06-2023 Evaluation note Encounter Date Diagnosis Assessment Notes Mar, Wellness examination (ICD-10 - Z00.00) [facility] Other Evaluation note 11-26-2022 Note Date & Type Note Facility 11-26-2022 Evaluation note Encounter Date Diagnosis Assessment Notes Nov, Screening mammogram for breast cancer (ICD-10 - Z12.31) [facility] Other Evaluation note 11-26-2022 Note Date & Type Note Facility 11-26-2022 Evaluation note Encounter Date Diagnosis Assessment Notes Nov, Acute bacterial conjunctivitis of both eyes (ICD-10 - H10.33) Artificial tears as needed, stop Sulfa ophthalmic drops. Begin Ciloxan drops and if no improvement in 48-72 hours call clinical applications specialist. [facility] Other Clinical Note 05-15-2022 Note Date & Type Note Facility 05-15-2022 Note PROCEDURE: XR HIP RT 2 3V W PELVIS HISTORY: Pain in right hip joint COMPARISON: None. FINDINGS: BONES:No fracture, acute abnormality, or significant arthropathy. SOFT TISSUES:No visible soft tissue swelling. EFFUSION:None visible. OTHER: IUD within midline pelvis. IMPRESSION: 1. No abnormal findings of the right hip joint. Electronically authenticated by: RODOLFO PERAZA Date: 2022-05-15 07:36 [facility] Evaluation note Note Date & Type Note Facility Evaluation note No Information [facility] Other Evaluation note Note Date & Type Note Facility Evaluation note Diagnosis Onset Date Hypothyroid acute Palpitation acute Screening mammogram for breast cancer acute Wellness examination acute [facility] Work Phone: History general Narrative - Reported Note Date & Type Note Facility History general Narrative - Reported Type Medical History pvc's heart palpitations Medical History Acute pain of right hip Medical History PUSHPA (generalized anxiety disorde r) Medical History Intermittent palpitations Medical History Hypertriglyceridemia Medical History Hypothyroidism, postablative Surgical History C section Surgical History nose/ cancer removed Hospitalization History See Above 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 [facility] Other Summary Purpose Family History Relationship Condition Age at Onset Recorded Date/T samina father Unknown mother Hypertension Unknown son Cerebrovascular accident (CVA) Unknown Advance Directives Advance Directive Response Recorded Date/ Time Advance Directives No April 22 7:47am Chief Complaint and Reason for Visit Chief Complaint Amb Documentation Wellness Reason for Visit Hypothyroid Palpitation Screening mammogram for breast cancer Wellness examination Additional Source Comments INFORMATION SOURCE (unrecogn ized section and content) DATE CREATED AUTHOR 04/13/2018 [facility] DATE CREATED AUTHOR AUTHOR'S ORGANIZ ATION 12/10/2022 [facility] REASON FOR VISIT (unrecogniz ed section and content) [facility] OrdersWellnessRefillNo InformationNo Information Care Teams (unrecognized sec tion and content) Team Status: Active Member Role Status Dates Bennett Fierro DO Primary Care Provider Active Team Status: Active Member Role Status Dates Bennett Fierro DO Primary Care Provider Active Start: April 22, 2024 Rachel Abarca LPN Attending Provider Active St art: April 22, 2024 Team Status: Active Member Role Status Dates Bennett Fierro DO Primary Care Provide r, Attending Provider Active Start: June 27, 2024 Team Status: Inactive Member Role Status Dates Bennett Fierro DO Primary Care Provide r, Attending Provider Active Start: July 13, 2024 End: July 13, 2024 Goals (unrecognized section and content) Goals may be documented in a n alternate section FOR RECORDS PERTAINING TO PATIENTS WHO ARE OR HAVE BEEN ENROLLED IN A CHEMICAL DEPENDENCY/SUBSTANCEABUSE PROGRAM, SOME INFORMATION MAY BE OMITTED. This clinical summary was aggregated from multiple sources. Caution should be exercised in using it in the provision of clinical care. This summary normalizes information from multiple sources, and as a consequence, information in this document may materially change the coding, format and clinical context of patient data. In addition, data may be omitted in some cases. CLINICAL DECISIONS SHOULD BE BASED ON THE PRIMARY CLINICAL RECORDS. [facility] [employer] [facility]. provides no warranty or guarantee of the accuracy or completeness of information in this document.
== END 2024-07-19 10:37 | disposition home or self-care (01) ==
LOC: US 10:37
PROVIDERS: PCP Internal Medicine; Visit Provider Internal Medicine
DX: R10.2 Pelvic and perineal pain (principal); Z97.5 Presence of (intrauterine) contraceptive device
CPT/HCPCS: 76830; 76856

== ENCOUNTER 2024-12-23 10:22 | Emergency (ER) | payer OTHER, SELFPAY ==
[2024-12-23 10:26] VITALS: BP 136/82; PULSE 62; TEMP 36.6; O2SAT 97
--- OUTSIDE RECORDS SUMMARY | 2024-12-23 10:41 | XMS_ITS | CCD ---
Author Organization [facility] Care Team Providers Care Manager Management Name Role Phone WILLIAM ALFORD Unavailable Unavailabl [...] source) Penicillins Drug allergy (disorder) 6 [facility] Repository (8 sources) penicillAMINE Drug Allergy [facility] [employer] Other (4 sources) Penicillin Drug Allergy 5 [facility] [employer] Other Medications Current Medications Medication Drug Class(es) [...] Active Start: 11-08-2023 take 1 tablet by ju th once [...] Basophils (Bld) [#/Vol] 0.0 10 3/uL 0.0-0.1 [facility] Basophils/100 WBC Auto (Bld) on 06-27-2024 Basophils/100 WBC (Bld) 0.5 % 0.2-2.0 [facility] Cholesterol in LDL Calc [Mas s/Vol]on 06-27-2024 Cholesterol in LDL [Mass/Vol] 88.0 mg/dL [facility] Comment on above: <100 mg/dl [id number] 0-129 mg/dl NEAR OR ABOVE [id number] mg/dl BORDERLINE [id number] mg/dl HIGH>190 mg/dl VERY HIGH Cholesterol in VLDL Calc [Ma ss/Vol]on 06-27-2024 Cholesterol in VLDL [Mass/Vol] 49.4 mg/dL [facility] Eosinophils/100 WBC Auto (Bl d)on 06-27-2024 Eosinophils/100 WBC (Bld) 1.9 % 0.9-7.0 [facility] Erythrocyte distribution wid th Auto (RBC) [Ratio]on 06-27-2024 Erythrocyte distribution width (RBC) [Ratio] 12.7 % 11.0-15.0 [facility] Estimated glomerular filtrat ion rate (GFR) non- Americanon 06-27-2024 GFR/1.73 sq M.predicted among non-blacks MDRD (S/P/Bld) [Vol rate/Area] mL/min/{1.73_m2} >=60 [facility] Globulin Calc (S) [Mass/Vol] on 06-27-2024 Globulin (S) [Mass/Vol] 3.4 g/dL [facility] Glucose mean value [Mass/vol ume] in Blood Estimated from glycated hemoglobinon 06-27-2024 Average glucose Estimated from glycated hemoglobin (Bld) [Mass/Vol] 103 mg/dL [facility] Hematocrit Auto (Bld) [Volum e fraction]on 06-27-2024 Hematocrit (Bld) [Volume fraction] 38.2 % 36.0-48.0 [facility] Hemoglobin [Mass/volume] in Bloodon 06-27-2024 Hemoglobin (Bld) [Mass/Vol] 13.0 g/dL 12.0-16.0 [facility] Laboratory - Chemistry and C hemistry - challengeon 06-27-2024 Albumin [Mass/Vol] 4.0 g/dL 3.4-5.0 [facility] ALP [Catalytic activity/Vol] 51 U/L 46-116 [facility] ALT [Catalytic activity/Vol] 20 U/L 14-59 [facility] AST [Catalytic activity/Vol] 9 U/L Low 15-37 [facility] Bilirubin [Mass/Vol] 0.4 mg/dL 0.2-1.0 [facility] Calcium [Mass/Vol] 9.0 mg/dL 8.5-10.1 [facility] Chloride [Moles/Vol] 100 mmol/L 98-107 [facility] Cholesterol [Mass/Vol] 181 mg/dL <=200 [facility] Cholesterol in HDL [Mass/Vol] 44 mg/dL 40-60 [facility] Comment on above: > or =60 mg/dl - LOW CARDIOVASCULAR RISK<40 mg/dl - HIGH CARDIOVASCULAR RISK CO2 [Moles/Vol] 27.0 mmol/L 21.0-32.0 [facility] Creatinine [Mass/Vol] 0.67 mg/dL 0.55-1.02 [facility] GFR/1.73 sq M.predicted MDRD (S/P/Bld) [Vol rate/Area] mL/min/{1.73_m2} >=60 [facility] Glucose [Mass/Vol] 93 mg/dL 74-106 [facility] Potassium [Moles/Vol] 3.9 mmol/L 3.5-5.1 [facility] Protein [Mass/Vol] 7.4 g/dL 6.4-8.2 [facility] Sodium [Moles/Vol] 135 mmol/L Low 136-145 [facility] Triglyceride [Mass/Vol] 247 mg/dL High <=150 [facility] TSH Qn 0.267 m[IU]/L Low 0.358-3.74 0 [facility] Urea nitrogen [Mass/Vol] 14.0 mg/dL 7.0-18.0 [facility] Urea nitrogen/Creatini ne [Mass ratio] 20.9 mg/mg [facility] Laboratory - Hematology and Cell countson 06-27-2024 HbA1c (Bld) [Mass fraction] 5.2 % 4.5-6.2 [facility] Comment on above: ADA RECOMMENDED LIMI T 4.0 - 6.0ADA THERAPEUTIC TARGET < 7.0ACTION SUGGESTED> 7.0 Immature granulocytes/100 WBC (Bld) 0.3 % 0.0-0.5 [facility] Leukocytes [#/volume] correc adrián for nucleated erythrocytes in Blood by Automated counon 06-27-2024 WBC corrected for nucl RBC Auto (Bld) [#/Vol] 5.8 10 3/uL 4.0-11.0 [facility] Lymphocytes Auto (Bld) [#/Vo l]on 06-27-2024 Lymphocytes (Bld) [#/Vol] 1.6 10 3/uL 1.2-3.8 [facility] Lymphocytes/100 WBC Auto (Bl d)on 06-27-2024 Lymphocytes/100 WBC (Bld) 28.0 % 20.5-60.0 [facility] MCH Auto (RBC) [Entitic mass ]on 06-27-2024 MCH (RBC) [Entitic mass] 31.4 pg 26.7-34.0 [facility] MCHC Auto (RBC) [Mass/Vol]on 06-27-2024 MCHC (RBC) [Mass/Vol] 34.0 g/dL 29.9-35.2 [facility] MCV Auto (RBC) [Entitic vol] on 06-27-2024 MCV (RBC) [Entitic vol] 92.3 fL 81.0-99.0 [facility] Monocytes Auto (Bld) [#/Vol] on 06-27-2024 Monocytes (Bld) [#/Vol] 0.5 10 3/uL 0.3-0.8 [facility] Monocytes/100 WBC Auto (Bld) on 06-27-2024 Monocytes/100 WBC (Bld) 8.2 % 1.7-12.0 [facility] Neutrophils Auto (Bld) [#/Vo l]on 06-27-2024 Neutrophils (Bld) [#/Vol] 3.6 10 3/uL 1.4-6.5 [facility] Neutrophils/100 WBC Auto (Bl d)on 06-27-2024 Neutrophils/100 WBC (Bld) 61.1 % 43.0-75.0 [facility] No Panel Informationon 06-27 Eosinophils # (Auto) 0.1 10 3/uL 0.0-0.7 [facility] Immature Granulocyte # (Auto) 0.02 10 3/uL 0.00-0.03 [facility] Platelet mean volume Auto (B ld) [Entitic vol]on 06-27-2024 Platelet mean volume (Bld) [Entitic vol] 11.2 fL 9.5-13.5 [facility] Platelets Auto (Bld) [#/Vol] on 06-27-2024 Platelets (Bld) [#/Vol] 194 10 3/uL 150-450 [facility] RBC Auto (Bld) [#/Vol]on RBC (Bld) [#/Vol] 4.14 10 6/uL Low 4.20-5.[address] [facility] Serum or plasma albumin/glob ulin mass ratioon 06-27-2024 Albumin/Globulin [Mass ratio] 1.2 {ratio} [facility] Serum or plasma anion gap de terminationon 06-27-2024 Anion gap [Moles/Vol] 11.9 mmol/L [facility] Serum or plasma total choles terol/high density lipoprotein (HDL) cholesterol mass evelyne 06-27-2024 Cholesterol.total /Cholesterol in HDL [Mass ratio] 4.1 {ratio} [facility] Comment on above: 3.3 - 4.4 LOW RISK4. 4 - 7.1 AVERAGE RISK7.1 - 11.0 MODERATE RISK>11.0 HIGH RISK MG MAMM SCREEN 3D ZAKI CADon 12-04-2022 MG MAMM SCREEN 3D ZAKI CAD Patient: RADHA BLOUNT Exam Date: 12/04/2022 : 1980 Gender:F Ordering : DR BENNETT FIERRO D.O. Admission #: [id number] Family : Order #: [id number] CLICK HERE TO VIEW EXAM RADIOLOGY REPORT [...] brain cancer at age 3. LOCATION: [facility] BREAST COMPOSITION: Heterogeneously dense,which may obscure small [...] MD on 12/04/2022 at 12:49 Normal [facility] MG MAMM SCREEN 3D ZAKI CAD [facility] Other Covid-19 PCR (CVDTB)on 09-19 SARS-CoV-2 (COVID-19) RNA ENEDELIA+probe Ql (Unsp spec) Detected Critically abnormal NOT DETECTED [facility] Comment on above: Result Comment: This test is not yet approved or cleared by the [place] FDA. When there are no FDA-approved or cleared tests available, and other criteria are met, FDA can make tests available under an emergency access mechanism called an Emergency Use Authorization (EUA). The EUA for this test is supported by the [place] of Health and Human Service's declaration that [...] used). Performed By: #### C VDTBH #### [facility] [address] [place] [address] Dr. Billy Johnson CBC AUTO DIFFon 05-12-2022 BASO # 0.1 103/ul Normal 0.0-0.1 [facility] Comment on above: Performed By: #### C BC #### [facility] [address] [place] [address] Dr. Billy Johnson Basophils/100 WBC (Bld) 0.9 % Normal 0.2-2.0 [facility] Comment on above: Performed By: #### C BC #### [facility] [address] [place] [address] Dr. Billy Johnson EO # 0.2 103/ul Normal 0.0-0.7 [facility] Comment on above: Performed By: #### C BC #### [facility] [address] [place] [address] Dr. Billy Johnson Eosinophils/100 WBC (Bld) 3.6 % Normal 0.9-7.0 [facility] Comment on above: Performed By: #### C BC #### [facility] [address] [place] [address] Dr. Billy Johnson Erythrocyte distribution width (RBC) [Ratio] 12.9 % Normal 11.0-15.0 [facility] Comment on above: Performed By: #### C BC #### [facility] [address] [place] [address] Dr. Billy Johnson Hematocrit (Bld) [Volume fraction] 38.9 % Normal 36.0-48.0 [facility] Comment on above: Performed By: #### C BC #### [facility] [address] [place] [address] Dr. Billy Johnson Hemoglobin (Bld) [Mass/Vol] 13.0 g/dL Normal 12.0-16.0 [facility] Comment on above: Performed By: #### C BC #### [facility] [address] [place] [address] Dr. Billy Johnson IG # 0.02 10e3/ul Normal 0.00-0.03 [facility] Comment on above: Performed By: #### C BC #### [facility] [address] [place] [address] Dr. Billy Johnson IG % 0.4 % Normal 0.0-0.5 [facility] Comment on above: Performed By: #### C BC #### [facility] [address] [place] [address] Dr. Billy Johnson LYMPH # 1.7 103/ul Normal 1.2-3.8 [facility] Comment on above: Performed By: #### C BC #### [facility] [address] [place] [address] Dr. Billy Johnson Lymphocytes/100 WBC (Bld) 30.6 % Normal 20.5-60.0 [facility] Comment on above: Performed By: #### C BC #### [facility] [address] [place] [address] Dr. Billy Johnson MANUAL DIFF REQ NO Normal [facility] Comment on above: Performed By: #### C BC #### [facility] [address] [place] [address] Dr. Billy Johnson MCH (RBC) [Entitic mass] 31.0 pg Normal 26.7-34.0 [facility] Comment on above: Performed By: #### C BC #### [facility] [address] [place] [address] Dr. Billy Johnson MCHC (RBC) [Mass/Vol] 33.4 g/dL Normal 29.9-35.2 [facility] Comment on above: Performed By: #### C BC #### [facility] [address] [place] [address] Dr. Billy Johnson MCV (RBC) [Entitic vol] 92.8 fL Normal 81.0-99.0 [facility] Comment on above: Performed By: #### C BC #### [facility] [address] [place] [address] Dr. Billy Johnson MONO # 0.5 103/ul Normal 0.3-0.8 [facility] Comment on above: Performed By: #### C BC #### [facility] [address] [place] [address] Dr. Billy Johnson Monocytes/100 WBC (Bld) 8.0 % Normal 1.7-12.0 [facility] Comment on above: Performed By: #### C BC #### [facility] [address] [place] [address] Dr. Billy Johnson NEUT # 3.2 103/ul Normal 1.4-6.5 [facility] Comment on above: Performed By: #### C BC #### [facility] [address] [place] [address] Dr. Billy Johnson Neutrophils/100 WBC (Bld) 56.5 % Normal 43.0-75.0 [facility] Comment on above: Performed By: #### C BC #### [facility] [address] [place] [address] Dr. Billy Johnson Platelet mean volume (Bld) [Entitic vol] 10.9 fL Normal 9.5-13.5 [facility] Comment on above: Performed By: #### C BC #### [facility] [address] [place] [address] Dr. Billy Johnson PLT 175 103/ul Normal 150-450 [facility] Comment on above: Performed By: #### C BC #### [facility] [address] [address] [address] Billy Johnson RBC 4.19 106/ul Critically low 4.20-5.40 [facility] Comment on above: Performed By: #### C BC #### [facility] [address] [address] [address] Billy Johnson WBC 5.6 103/ul Normal 4.0-11.0 [facility] Comment on above: Performed By: #### C BC #### [facility] [address] [address] [address] Billy Johnson GLYCOHEMOGLOBIN A1Con 2021 ADA RECOMMENDATION SEE BELOW Normal [facility] Comment on above: Result Comment: ADA RECOMMENDED LIMIT 4.0 - 6.0 ADA THERAPEUTIC TARGET < 7.0 ACTION SUGGESTED > 7.0 Performed By: #### A 1C #### [facility] [address] [place] [address] Dr. Billy Johnson Glucose [Mass/Vol] 108 mg/dL Normal [facility] Comment on above: Performed By: #### A 1C #### [facility] [address] [place] [address] Dr. Billy Johnson HbA1c (Bld) [Mass fraction] 5.4 % Normal 4.5-6.2 [facility] Comment on above: Performed By: #### A 1C #### [facility] [address] [place] [address] Dr. Billy Johnson LIPID PROFILEon 05-12-2022 CHOL-HDL RATIO NORM SEE BELOW Normal [facility] Comment on above: Result Comment: 3.3 - 4.4 LOW RISK 4.4 - 7.1 AVERAGE RISK 7.1 - 11.0 MODERATE RISK >11.0 HIGH RISK Performed By: #### T SH, LIPID, CMP #### [facility] [address] [address] [address] Billy Johnson Cholesterol [Mass/Vol] 200 mg/dL Normal <=200 [facility] Comment on above: Performed By: #### T SH, LIPID, CMP #### [facility] [address] [address] [address] Billy Johnson Cholesterol in HDL [Mass/Vol] 38 mg/dL Critically low 40-60 [facility] Comment on above: Performed By: #### T SH, LIPID, CMP #### [facility] [address] [place] [address] Dr. Billy Johnson Cholesterol in LDL [Mass/Vol] 90.2 mg/dL Normal [facility] Comment on above: Performed By: #### T SH, LIPID, CMP #### [facility] [address] [place] [address] Dr. Billy Johnson Cholesterol.total /Cholesterol in HDL [Mass ratio] 5.3 {ratio} Normal [facility] Comment on above: Performed By: #### T SH, LIPID, CMP #### [facility] [address] [place] [address] Dr. Billy Johnson HDL NORMAL > or = 60 mg/dl - LO W CARDIOVASCULAR RISK <40 mg/dl - HIGH CARDIOVASCULAR RISK Normal [facility] Comment on above: Performed By: #### T SH, LIPID, CMP #### [facility] [address] [place] [address] Dr. Billy Johnsno LDL CALC NORMAL SEE BELOW Normal [facility] Comment on above: Result Comment: <100 mg/dl OPTIMAL 100 - 129 mg/dl NEAR OR ABOVE OPTIMAL 130 - 159 mg/dl BORDERLINE HIGH 160 - 189 mg/dl HIGH >190 mg/dl VERY HIGH Performed By: #### T SH, LIPID, CMP #### [facility] [address] [place] [address] Dr. Billy Johnson Triglyceride [Mass/Vol] 359 mg/dL Critically high <=150 [facility] Comment on above: Performed By: #### T SH, LIPID, CMP #### [facility] [address] [address] [address] Billy Johnson VLDL CALC 71.8 mg/dL Normal [facility] Comment on above: Performed By: #### T SH, LIPID, CMP #### [facility] [address] [address] [address] Billy Johnson PROF 14(COMP METB)on 022 Albumin [Mass/Vol] 3.9 g/dL Normal 3.4-5.0 [facility] Comment on above: Performed By: #### T SH, LIPID, CMP #### [facility] [address] [address] [address] Billy Johnson Albumin/Globulin [Mass ratio] 1.2 {ratio} Normal [facility] Comment on above: Performed By: #### T SH, LIPID, CMP #### [facility] [address] [address] [address] Billy Johnson ALP [Catalytic activity/Vol] 41 U/L Critically low 46-116 [facility] Comment on above: Performed By: #### T SH, LIPID, CMP #### [facility] [address] [address] [address] Billy Johnson ALT [Catalytic activity/Vol] 18 U/L Normal 14-59 [facility] Comment on above: Performed By: #### T SH, LIPID, CMP #### [facility] [address] [address] [address] Billy Johnson Anion gap [Moles/Vol] 9.4 mmol/L Normal [facility] Comment on above: Performed By: #### T SH, LIPID, CMP #### [facility] [address] [address] [address] Billy Johnson AST [Catalytic activity/Vol] 13 U/L Critically low 15-37 [facility] Comment on above: Performed By: #### T SH, LIPID, CMP #### [facility] [address] [address] [address] Billy Johnson Bilirubin [Mass/Vol] 0.5 mg/dL Normal 0.2-1.0 [facility] Comment on above: Performed By: #### T SH, LIPID, CMP #### [facility] [address] [address] [address] Billy Johnson Calcium [Mass/Vol] 8.8 mg/dL Normal 8.5-10.1 [facility] Comment on above: Performed By: #### T SH, LIPID, CMP #### [facility] [address] [address] [address] Billy Johnson Chloride [Moles/Vol] 105 mmol/L Normal 98-107 [facility] Comment on above: Performed By: #### T SH, LIPID, CMP #### [facility] [address] [place] [address] Dr. Billy Johnson CO2 [Moles/Vol] 27.7 mmol/L Normal 21.0-32.0 [facility] Comment on above: Performed By: #### T SH, LIPID, CMP #### [facility] [address] [place] [address] Dr. Billy Johnson Creatinine [Mass/Vol] 0.67 mg/dL Normal 0.55-1.02 [facility] Comment on above: Performed By: #### T SH, LIPID, CMP #### [facility] [address] [place] [address] Dr. Billy Johnson EGFR-AF UZBEK >60 Normal >=60 [facility] Comment on above: Performed By: #### T SH, LIPID, CMP #### [facility] [address] [place] [address] Dr. Billy Johnson EGFR-NON AF UZBEK >60 Normal >=60 [facility] Comment on above: Performed By: #### T SH, LIPID, CMP #### [facility] [address] [place] [address] Dr. Billy Johnson Globulin (S) [Mass/Vol] 3.3 g/dL Normal [facility] Comment on above: Performed By: #### T SH, LIPID, CMP #### [facility] [address] [place] [address] Dr. Billy Johnson Glucose [Mass/Vol] 90 mg/dL Normal 74-106 [facility] Comment on above: Performed By: #### T BHANU LIPID, CMP #### [facility] [address] [place] [address] Dr. Billy Johnson Potassium [Moles/Vol] 4.1 mmol/L Normal 3.5-5.1 [facility] Comment on above: Performed By: #### T BHANU LIPID, CMP #### [facility] [address] [place] [address] Dr. Billy Johnson Protein [Mass/Vol] 7.2 g/dL Normal 6.4-8.2 [facility] Comment on above: Performed By: #### T BHAUN LIPID, CMP #### [facility] [address] [place] [address] Dr. Billy Johnson Sodium [Moles/Vol] 138 mmol/L Normal 136-145 [facility] Comment on above: Performed By: #### T BHANU LIPID, CMP #### [facility] [address] [place] [address] Dr. Billy Johnson Urea nitrogen [Mass/Vol] 14.0 mg/dL Normal 7.0-18.0 [facility] Comment on above: Performed By: #### T BHANU LIPID, CMP #### [facility] [address] [place] [address] Dr. Billy Johnson Urea nitrogen/Creatini ne [Mass ratio] 20.9 mg/mg Normal [facility] Comment on above: Performed By: #### T BHANU LIPID, CMP #### [facility] [address] [place] [address] Dr. Billy Johnson TSHon 05-12-2022 TSH 1.434 uIU/mL Normal 0.358-3.74 0 [facility] Comment on above: Performed By: #### T BHANU LIPID, CMP #### [facility] [address] [place] [address] Dr. Billy Johnson Cytologyon 07-21-2017 Cytology (NOTE)[id number] Y LABORATORIESCONSULTING PATHOLOGISTS CORPORATIONANATOMIC SXKHLEUST[address] [place] [phone] Fax: GYNECOLOGIC CYTOLOGY REPORTPatient Name: RADHA BLOUNTMR#: [id number] #[id number]: Cervical material, (ThinPrep vial, Imaging-assisted review)Clinical [id number] Routine service center manager exam without abnormal findingsHigh risk HPV DNA testing is requested if the diagnosis is [id number] Encounter for screening for HPVLMP: not having periodsINTERPRETATIONCervical material, (ThinPrep vial, Imaging-assisted review):Specimen Adequacy: Satisfactory for evaluation. - Endocervical/transformation zone component present. - Partially obscuring exudate.Descriptive Diagnosis: Negative for intraepithelial lesion or malignancy. Chief Dispatcher: MAY Cheng(ASCP)Electronically Signed Out07/28/2017 [facility] Vital Signs Date Time Vital Sign Value Performing Clinician Facility 07-13-2024 09:57-0400 Body height 176.53 cm [facility] 07-13-2024 09:57-0400 Body mass index (BMI) [Ratio] 26.3 kg/m2 [facility] 07-13-2024 09:57-0400 Body weight 82.1 kg [facility] 07-13-2024 09:57-0400 Heart rate 70 /min [facility] 07-13-2024 09:57-0400 SaO2% (BldA) [Mass fraction] 98 % [facility] 05-21-2023 10:30-0400 Body height 177.8 cm [facility] Other 05-21-2023 10:30-0400 Body mass index (BMI) [Ratio] 26 kg/m2 [facility] Other 05-21-2023 10:30-0400 Body weight 82.19 kg Bennett Kaizena Other [facility] Other 05-21-2023 10:30-0400 Diastolic blood pressure 70 mm[Hg] [facility] Other [facility] Other 05-21-2023 10:30-0400 Respiratory rate 12 /min Bennett Ball Other [facility] Other 05-21-2023 10:30-0400 Systolic blood pressure 113 mm[Hg] Bennett Ball Other [facility] Other 11-26-2022 12:45-0500 Body height 177.8 cm Bennett Ball Other [facility] Other 11-26-2022 12:45-0500 Body mass index (BMI) [Ratio] 25.57 kg/m2 Bennett Ball Other [facility] Other 11-26-2022 12:45-0500 Body weight 80.83 kg Bennett Ball Other [facility] Other 11-26-2022 12:45-0500 Diastolic blood pressure 70 mm[Hg] Bennett Ball Other [facility] Other 11-26-2022 12:45-0500 Respiratory rate 12 /min Bennett Ball Other [facility] Other 11-26-2022 12:45-0500 Systolic blood pressure 116 mm[Hg] Bennett Ball Other [facility] Other Encounters Encounter Date Encounter Type Care Provider Facility Start: 07-13-2024 End: 07-13-2024 ambulatory [facility] Work Phone: Start: 07-13-2024 End: 07-13-2024 Encounter for general adult medical examination without abnormal findings [facility] Start: 07-13-2024 End: 07-13-2024 Patient encounter procedure [facility] Work Phone: Start: 07-10-2024 Patient encounter status [facility] Start: 06-27-2024 Non-patient / Non-visit [facility] [employer] [facility] [employer] Work Phone: Start: 04-22-2024 Non-patient / Non-visit [facility] Work Phone: Start: 11-10-2023 End: 11-10-2023 ambulatory Bennett Ball Other [facility] Other Start: 11-10-2023 Telephone encounter Bennett Ball [facility] Start: 11-08-2023 End: 11-08-2023 ambulatory Bennett Ball Other [facility] Other Start: 11-08-2023 Telephone encounter Bennett Ball [facility] Start: 10-21-2023 End: 10-21-2023 ambulatory Bennett Ball Other [facility] Other Start: 10-21-2023 Telephone encounter Bennett Ball [facility] Start: 05-21-2023 End: 05-21-2023 ambulatory Bennett Ball Other [facility] Other Start: 05-21-2023 Encounter for genera l adult medical examination without abnormal findings Bennett Ball [facility] Start: 05-21-2023 Periodic preventive med est patient 40-64yrs Bennett Ball [facility] Start: 04-06-2023 End: 04-06-2023 ambulatory Bennett Ball Other [facility] Other Start: 04-06-2023 Encounter for genera l adult medical examination without abnormal findings Bennett Ball [facility] Start: 04-06-2023 Telephone encounter Bennett Ball [facility] Start: 03-19-2023 End: 03-19-2023 ambulatory Bennett Ball Other [facility] Other Start: 03-19-2023 Telephone encounter Bennett Ball [facility] Start: 12-04-2022 End: 12-05-[address] BENNETT FIERRO Facility:[facility] Start: 11-26-2022 End: 11-26-2022 ambulatory Bennett Fierro Other [facility] Other Start: 11-26-2022 Office outpatient vi sit 15 minutes Bennett Fierro [facility] Start: 11-26-2022 Telephone encounter Bennett Fierro [facility] Start: 10-07-2022 End: 10-07-2022 ambulatory LUKE GUS Facility:[facility] Start: 2022 End: 05-15-[address] BENNETT FIERRO Facility:[facility] Start: 05-13-2022 Encounter for genera l adult medical examination without abnormal findings DR BENNETT FIERRO [facility] Start: 05-13-2022 Adult health examination Bennett Fierro Other [facility] Other Start: 05-12-2022 End: 05-13-[address] BENNETT FIERRO Facility:[facility] Start: 05-12-2022 End: 05-13-2022 Encounter for general adult medical examination without abnormal findings DR BENNETT FIERRO Facility:[facility] Start: 07-21-2017 End: 07-22-2017 Ambulatory WILLIAM ALFORD [facility] Procedures Date Procedure Procedure Detail Performing Clinician Start: 07-21-2017 Cytopathology proced ure, preparation of smear, genital source WILLIAM ALFORD Depression screening Gerardo Fierro Other Screening for malign ant neoplasm of breast Bennett Fierro Other Plan of Treatment Date Care Activity Detail Author MG Breast - bilateral Screening [facility] Immunizations Immunization Date Immunization Notes Care Provider Fa dusty 05-08-2021 COVID-19 Vaccine Mod caity - Documentation Purposes Only Bennett Fierro Other [facility] Payers Date Payer Category Payer Unknown [id number] 2019 Unknown [id number] 2016 Unknown [id number] 1980 Unknown [id number] 1980 Unknown [id number] 1980 Unknown [id number] 1980 Unknown [id number] Social History Date Type Detail Facility Unknown if ever smoked [facility] Other Sex Assigned At Sex Assigned At Bir th [facility] Other Start: 07-13-2024 Tobacco smoking status NHIS Never smoked tobacco (finding) [facility] Start: 1980 Sex Assigned At Female F [facility] Evaluation note 11-10-2023 Note Date & Type Note Facility 11-10-2023 Evaluation note Encounter Date Diagnosis Assessment Notes Oct, Primary insomnia (ICD-10 - F51.01) [facility] Other Evaluation note 11-08-2023 Note Date & Type Note Facility 11-08-2023 Evaluation note Encounter Date Diagnosis Assessment Notes Oct, Primary insomnia (ICD-10 - F51.01) [facility] Other Evaluation note 05-21-2023 Note Date & [...] or dysphagia - denies melena or hematochezia [facility] Other Evaluation note 04-06-2023 Note Date & Type Note Facility 04-06-2023 Evaluation note Encounter Date Diagnosis Assessment Notes Mar, Wellness examination (ICD-10 - Z00.00) [facility] Other Evaluation note 11-26-2022 Note Date & Type Note Facility 11-26-2022 Evaluation note Encounter Date Diagnosis Assessment Notes Nov, Screening mammogram for breast cancer (ICD-10 - Z12.31) [facility] Other Evaluation note 11-26-2022 Note Date & Type Note Facility 11-26-2022 Evaluation note Encounter Date Diagnosis Assessment Notes Nov, Acute bacterial conjunctivitis of both eyes (ICD-10 - H10.33) Artificial tears as needed, stop Sulfa ophthalmic drops. Begin Ciloxan drops and if no improvement in 48-72 hours call life insurance specialist. [facility] Other Clinical Note 05-15-2022 Note Date & [...] by: RODOLFO PERAZA Date: 2022-05-15 07:36 [facility] Evaluation note Note Date & Type Note Facility Evaluation note No Information [facility] Other Evaluation note Note Date & Type Note Facility Evaluation note Diagnosis Onset Date Hypothyroid acute Palpitation acute Screening mammogram for breast cancer acute Wellness examination acute [facility] Work Phone: History general Narrative - [...] See Above 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 [facility] Other Summary Purpose Family History Relationship Condition [...] and content) DATE CREATED AUTHOR 04/13/2018 [facility] DATE CREATED AUTHOR AUTHOR'S ORGANIZ ATION 12/10/2022 [facility] REASON FOR VISIT (unrecogniz ed section and content) [facility] OrdersWellnessRefillNo InformationNo Information Care Teams (unrecognized [...] BE BASED ON THE PRIMARY CLINICAL RECORDS. [facility]. provides no warranty or guarantee of the accuracy or completeness of information in this document.
[2024-12-23 12:12] LABS: HIV Antigen NON-REACTIVE (NONREACTIVE); Internal Control Within Normal Limits
--- NOTE | 2024-12-23 15:16 | ED.GENADUL1 ---
HPI HPI - General Adult General Chief complaint: Recheck/Abnormal Lab/Rx Stated complaint: BWC - NEEDLE STICK Time Seen by Provider: 12/23/24 10:32 Source: patient Mode of arrival: walk-in History of Present Illness HPI narrative: Patient had just administered hepatitis B vaccine to an infant and accidentally got stuck with the same needle in her left index finger. Her hepatitis B series are up-to-date. Related Data Allergies Allergy/AdvReac Type Severity Reaction Status Date / Time Penicillins Allergy Severe Hives Verified 12/23/24 10:30 Opioid HPI Opioid Management Most Recent Opioid Data: No Data to Display Review of Systems ROS Status of ROS 10 or more systems reviewed and unremarkable except as noted in history and below PFSH PFS Social History Little interest or pleasure in doing things: not at all Feeling down, depressed, or hopeless: not at all Exam Narrative Exam Narrative: Patient is nondistressed. No open wound is seen in the left index finger. There is no bleeding. Constitutional Vital Signs, click to edit/add: Last Vital Signs Temp 97.9 F 12/23/24 10:26 Pulse 62 12/23/24 10:26 Resp 16 12/23/24 10:26 BP 136/82 12/23/24 10:26 Pulse Ox 97 12/23/24 10:26 O2 Del Method Room Air 12/23/24 10:26 Course Vital Signs Vital signs: Vital Signs Temperature 97.9 F 12/23/24 10:26 Pulse Rate 62 12/23/24 10:26 Respiratory Rate 16 12/23/24 10:26 Blood Pressure 136/82 12/23/24 10:26 Pulse Oximetry 97 12/23/24 10:26 Oxygen Delivery Method Room Air 12/23/24 10:26 Temperature 97.9 F 12/23/24 10:26 Pulse Rate 62 12/23/24 10:26 Respiratory Rate 16 12/23/24 10:26 Blood Pressure 136/82 12/23/24 10:26 Pulse Oximetry 97 12/23/24 10:26 Oxygen Delivery Method Room Air 12/23/24 10:26 Medical Decision Making MDM Narrative Medical decision making narrative: Blood work is drawn for labs per needlestick protocol and she is discharged in stable condition. Lab Data Labs: Lab Results 12/23/24 Range/Units 10:37 HIV 1&2 Antibody Non-reactive (NONREACTIVE) HIV P24 Antigen Non-reactive (NONREACTIVE) Discharge Plan Discharge Chief Complaint: Recheck/Abnormal Lab/Rx Clinical Impression: Needlestick injury accident Patient Disposition: Home, Self-Care Time of Disposition Decision: 10:45 Condition: Good Mode of Transportation: Other Print Language: Iranian Instructions: Needle Stick Injuries (ED) Additional Instructions: Follow-up with employee health with results of your blood work. Return for worsening symptoms. Referrals: Bennett Barrios DO [Primary Care Provider] - 1 week Discharge Date/Time: 12/23/24 11:02
[2024-12-24 06:10] LABS: HCV Antibody Non Reactive (Non Reactive)
[2024-12-24 11:14] LABS: Rapid Plasma Reagin, Quant Non Reactive titer (NonRea<1:1)
== END 2024-12-23 11:02 | disposition home or self-care (01) ==
PROVIDERS: Emergency Provider Emergency Medicine; PCP Internal Medicine
DX: S69.82XA Other specified injuries of left wrist, hand and finger(s), initial encounter (principal); Z77.21 Contact with and (suspected) exposure to potentially hazardous body fluids; W46.0XXA Contact with hypodermic needle, initial encounter
CPT/HCPCS: 36415; 86317; 86592; 86803; 87389; 99283

== ENCOUNTER 2025-02-09 09:24 | Outpatient (OUT) | payer BC, SELFPAY ==
--- NOTE | 2025-02-09 09:27 | MM_ITS ---
Patient Name: KARIS BLOUNT MR#: [id number] : 1980 Exam Date: 02/09/2025 Ordering Doctor: DR Bennett Barrios D.O. RADIOLOGY REPORT PROCEDURE: MM TOMOSYNTHESIS SCREENING BI COMPARISON: MM TOMOSYNTHESIS SCREENING BI, 01/28/2024. MG MAMM SCREEN 3D ZAKI CAD, 12/04/2022. MG MAMM SCREEN 3D ZAKI CAD, 11/20/2021. MG MAMM ZAKI SCRN W CAD DIG, 07/29/2016. INDICATIONS: Screening Calculator Name NCI Breast Cancer Risk Assessment Tool 5 Year Breast Cancer Risk 0.90% Lifetime Breast Cancer Risk 8.30% Personal Breast Cancer No Personal Ovarian Cancer No Treatments removal with radiation Family Cancers Grandmother-maternal with breast cancer at age 50; Son with brain cancer at age 5. LOCATION: [facility] BREAST COMPOSITION: There are scattered areas of fibroglandular density. FINDINGS: DIAGNOSTIC CATEGORY 1--NEGATIVE. RIGHT BREAST: No significant suspicious finding. LEFT BREAST: No significant suspicious finding. RECOMMENDATIONS: ROUTINE MAMMOGRAM AND CLINICAL EVALUATION IN 12 MONTHS. PLEASE NOTE: A NORMAL MAMMOGRAM DOES NOT EXCLUDE THE POSSIBILITY OF BREAST CANCER. A CLINICALLY SUSPICIOUS PALPABLE LUMP SHOULD BE BIOPSIED. Dictated by: Huan Meza DO on 02/09/2025 at 16:25 Approved by: Huan Meza DO on 02/09/2025 at 16:28
== END 2025-02-09 09:25 | disposition home or self-care (01) ==
LOC: MAMMO 09:24
PROVIDERS: PCP Internal Medicine; Visit Provider Internal Medicine
DX: Z12.31 Encounter for screening mammogram for malignant neoplasm of breast (principal); Z80.3 Family history of malignant neoplasm of breast; Z80.8 Family history of malignant neoplasm of other organs or systems
CPT/HCPCS: 77063; 77067

== ENCOUNTER 2025-07-14 09:51 | Outpatient (OUT) | payer BC, SELFPAY ==
--- OUTSIDE RECORDS SUMMARY | 2025-07-14 09:53 | XMS_ITS | Clinical Summary ---
Author Organization [facility] Address [address] [place] [address] Phone Care Team Providers Care Teller Supervisor Name Role Phone Bennett Barrios DO Primary Care Provider [phone] Social History Tobacco Use Types Packs/Day Years Used Date Smoking Tobacco: Never Assessed Comments Unknown Sex and Gender Information Value Date Recorded Sex Assigned at Not on file Legal Sex Female 2:53 PM EST Gender Identity Not on file Sexual Orientation Not on file Plan of Treatment Not on file Care Teams Teller Supervisor Relationship Specialty Start Date End Date Bennett Barrios DO PCP - General 03/17/03
--- OUTSIDE RECORDS SUMMARY | 2025-07-14 09:53 | XMS_ITS | Clinical Summary ---
Author Organization [facility] Address [address] [place] [id number] Care Team Providers Care Medical Underwriter Name Role Phone Unavailable Primary Care Provider Unavailabl e Medications methylPREDNISo lone (MEDROL) 16 mg ORAL tablet Take 1 tablet by mouth once daily. 4 tablet 0 09/05/20 11 Active progesterone 50 mg/mL INTRAMUSC. injection Inject intramuscularly once daily. for frozen cycle 3 mL 3 09/05/20 11 Active estradiol (ESTRACE) 2 mg ORAL tablet Take by mouth once daily. use 3 pills every day for frozen cycle 90 tablet 3 09/05/20 11 Active doxycycline 100 mg ORAL tablet Take by mouth twice daily. for frozen cycle 8 tablet 0 09/05/20 11 Active Norethindrone- Eth Estradiol (NECON , ,) 1-35 mg-mcg ORAL per tablet Take 1 tablet by mouth once daily. 1 Package 1 10/23/19 12 Active Active Problems Problem Noted Date Diagnosed Date Female infertility of unspecified origin 011 Social History Tobacco Use Types Packs/Day Years Used Date Smoking Tobacco: Never Assessed Comments No Sex and Gender Information Value Date Recorded Sex Assigned at Not on file Legal Sex Female 10:10 AM EST Gender Identity Not on file Sexual Orientation Not on file Last Filed Vital Signs Vital Sign Reading Time Taken Comments Blood Pressure 176/96 08/14/2011 1:04 PM EDT Patient anxious, never had high blood pressure> Pulse 89 08/14/2011 1:04 PM EDT Temperature 36.8 C (98.2 F) 08/14/2011 1:04 PM EDT Respiratory Rate 20 08/14/2011 1:04 PM EDT Oxygen Saturation - - Inhaled Oxygen Concentration - - Weight - - Height - - Body Mass Index - - Plan of Treatment Health Maintenance Due Date Last Done Comments Anxiety Screening 1996 Depression Screening 1996 HIV Screening 1996 Hepatitis C Screening 1996 DTaP,Tdap,Td Vaccine (1 - Tdap) 1997 Hepatitis B Vaccine (1 of 3 - 19+ 3-dose series) 05/14 Cervical Cancer Screening [address] Colonography 2023 Cologuard (FIT-DNA) 2023 Colonoscopy 2023 Colorectal Cancer Screening 2023 Diabetes Screening 2023 Fecal Occult Blood 2023 Lipid Screening 2023 Sigmoidoscopy 2023 Influenza Vaccine (#1) 2025
--- OUTSIDE RECORDS SUMMARY | 2025-07-14 09:56 | XMS_ITS | CCD ---
Author Organization [facility] Care Team Providers Care Geological Aide Name Role Phone WILLIAM ALFORD Unavailable Unavailabl [...] source) Penicillins Drug allergy (disorder) 6 [facility] Repository (8 sources) penicillAMINE Drug Allergy [facility] Other (4 sources) Penicillin Drug Allergy 5 [facility] Other Medications Current Medications Medication Drug Class(es) [...] Basophils (Bld) [#/Vol] 0.0 10 3/uL 0.0-0.[address] [facility] Basophils/100 WBC Auto (Bld) on 06-27-2024 Basophils/100 WBC (Bld) 0.5 % 0.2-2.[address] [facility] Cholesterol in LDL Calc [Mas s/Vol]on 06-27-2024 Cholesterol in LDL [Mass/Vol] 88.0 mg/dL [facility] Comment on above: <100 mg/dl [id number] 0-129 mg/dl NEAR OR ABOVE [id number] mg/dl BORDERLINE EEXT884-685 mg/dl HIGH>190 mg/dl VERY HIGH Cholesterol in VLDL Calc [Ma ss/Vol]on 06-27-2024 Cholesterol in VLDL [Mass/Vol] 49.4 mg/dL [facility] Eosinophils/100 WBC Auto (Bl d)on 06-27-2024 Eosinophils/100 WBC (Bld) 1.9 % 0.9-7.[address] [facility] Erythrocyte distribution wid th Auto (RBC) [Ratio]on 06-27-2024 Erythrocyte distribution width (RBC) [Ratio] 12.7 % 11.0-15.[address] [facility] Estimated glomerular filtrat ion rate (GFR) non- Americanon 06-27-2024 GFR/1.73 sq M.predicted among non-blacks MDRD (S/P/Bld) [Vol rate/Area] mL/min/{1.73_m2} >=[address] [facility] Globulin Calc (S) [Mass/Vol] on 06-27-2024 Globulin (S) [Mass/Vol] 3.4 g/dL [facility] Glucose mean value [Mass/vol ume] in Blood Estimated from glycated hemoglobinon 06-27-2024 Average glucose Estimated from glycated hemoglobin (Bld) [Mass/Vol] 103 mg/dL [facility] Hematocrit Auto (Bld) [Volum e fraction]on 06-27-2024 Hematocrit (Bld) [Volume fraction] 38.2 % 36.0-48.[address] [facility] Hemoglobin [Mass/volume] in Bloodon 06-27-2024 Hemoglobin (Bld) [Mass/Vol] 13.0 g/dL 12.0-16.[address] [facility] Laboratory - Chemistry and C hemistry - challengeon 06-27-2024 Albumin [Mass/Vol] 4.0 g/dL 3.4-5.[address] [facility] ALP [Catalytic activity/Vol] 51 U/L 46-[address] [facility] ALT [Catalytic activity/Vol] 20 U/L 14-[address] [facility] AST [Catalytic activity/Vol] 9 U/L Low 15-[address] [facility] Bilirubin [Mass/Vol] 0.4 mg/dL 0.2-1.[address] [facility] Calcium [Mass/Vol] 9.0 mg/dL 8.5-10.[address] [facility] Chloride [Moles/Vol] 100 mmol/L 98-[address] [facility] Cholesterol [Mass/Vol] 181 mg/dL <=[address] [facility] Cholesterol in HDL [Mass/Vol] 44 mg/dL 40-[address] [facility] Comment on above: > or =60 mg/dl - LOW CARDIOVASCULAR RISK<40 mg/dl - HIGH CARDIOVASCULAR RISK CO2 [Moles/Vol] 27.0 mmol/L 21.0-32.0 [facility] Creatinine [Mass/Vol] 0.67 mg/dL 0.55-1.[address] [facility] GFR/1.73 sq M.predicted MDRD (S/P/Bld) [Vol rate/Area] mL/min/{1.73_m2} >=[address] [facility] Glucose [Mass/Vol] 93 mg/dL 74-[address] [facility] Potassium [Moles/Vol] 3.9 mmol/L 3.5-5.[address] [facility] Protein [Mass/Vol] 7.4 g/dL 6.4-8.[address] [facility] Sodium [Moles/Vol] 135 mmol/L Low 136-[address] [facility] Triglyceride [Mass/Vol] 247 mg/dL High <=[address] [facility] TSH Qn 0.267 m[IU]/L Low 0.358-3.[address] [facility] Urea nitrogen [Mass/Vol] 14.0 mg/dL 7.0-18.[address] [facility] Urea nitrogen/Creatini ne [Mass ratio] 20.9 mg/mg [facility] Laboratory - Hematology and Cell countson 06-27-2024 HbA1c (Bld) [Mass fraction] 5.2 % 4.5-6.[address] [facility] Comment on above: ADA RECOMMENDED LIMI T 4.0 - 6.0ADA THERAPEUTIC TARGET < 7.0ACTION SUGGESTED> 7.0 Immature granulocytes/100 WBC (Bld) 0.3 % 0.0-0.[address] [facility] Leukocytes [#/volume] correc adrián for nucleated erythrocytes in Blood by Automated counon 06-27-2024 WBC corrected for nucl RBC Auto (Bld) [#/Vol] 5.8 10 3/uL 4.0-11.[address] [facility] Lymphocytes Auto (Bld) [#/Vo l]on 06-27-2024 Lymphocytes (Bld) [#/Vol] 1.6 10 3/uL 1.2-3.[address] [facility] Lymphocytes/100 WBC Auto (Bl d)on 06-27-2024 Lymphocytes/100 WBC (Bld) 28.0 % 20.5-60.[address] [facility] MCH Auto (RBC) [Entitic mass ]on 06-27-2024 MCH (RBC) [Entitic mass] 31.4 pg 26.7-34.[address] [facility] MCHC Auto (RBC) [Mass/Vol]on 06-27-2024 MCHC (RBC) [Mass/Vol] 34.0 g/dL 29.9-35.[address] [facility] MCV Auto (RBC) [Entitic vol] on 06-27-2024 MCV (RBC) [Entitic vol] 92.3 fL 81.0-99.[address] [facility] Monocytes Auto (Bld) [#/Vol] on 06-27-2024 Monocytes (Bld) [#/Vol] 0.5 10 3/uL 0.3-0.[address] [facility] Monocytes/100 WBC Auto (Bld) on 06-27-2024 Monocytes/100 WBC (Bld) 8.2 % 1.7-12.[address] [facility] Neutrophils Auto (Bld) [#/Vo l]on 06-27-2024 Neutrophils (Bld) [#/Vol] 3.6 10 3/uL 1.4-6.[address] [facility] Neutrophils/100 WBC Auto (Bl d)on 06-27-2024 Neutrophils/100 WBC (Bld) 61.1 % 43.0-75.[address] [facility] No Panel Informationon 06-27 Eosinophils # (Auto) 0.1 10 3/uL 0.0-0.[address] [facility] Immature Granulocyte # (Auto) 0.02 10 3/uL 0.00-0.[address] [facility] Platelet mean volume Auto (B ld) [Entitic vol]on 06-27-2024 Platelet mean volume (Bld) [Entitic vol] 11.2 fL 9.5-13.[address] [facility] Platelets Auto (Bld) [#/Vol] on 06-27-2024 Platelets (Bld) [#/Vol] 194 10 3/uL 150-[address] [facility] RBC Auto (Bld) [#/Vol]on RBC (Bld) [#/Vol] 4.14 10 6/uL Low 4.20-5.40 [facility] Serum or plasma albumin/glob ulin mass ratioon 06-27-2024 Albumin/Globulin [Mass ratio] 1.2 {ratio} [facility] Serum or plasma anion gap de terminationon 06-27-2024 Anion gap [Moles/Vol] 11.9 mmol/L [facility] Serum or plasma total choles terol/high density lipoprotein (HDL) cholesterol mass evelyne 06-27-2024 Cholesterol.total /Cholesterol in HDL [Mass ratio] 4.1 {ratio} [facility] Comment on above: 3.3 - 4.4 LOW RISK4. 4 - 7.1 AVERAGE RISK7.1 - 11.0 MODERATE RISK>11.0 HIGH RISK MG MAMM SCREEN 3D ZAKI CADon 12-04-2022 MG MAMM SCREEN 3D ZAKI CAD Patient: RADHA BLOUNT Exam Date: 12/04/2022 : 1980 Gender:F Ordering : DR BENNETT FIERRO D.O. Admission #: [id number] Family : Order #: [id number] CLICK HERE TO VIEW EXAM RADIOLOGY REPORT [...] brain cancer at age 3. LOCATION: [facility] BREAST COMPOSITION: Heterogeneously dense,which may obscure [...] MD on 12/04/2022 at 12:49 Normal [facility] MG MAMM SCREEN 3D ZAKI CAD [employer] Other Covid-19 PCR (CVDTB)on 09-19 SARS-CoV-2 (COVID-19) RNA ENEDELIA+probe Ql (Unsp spec) Detected Critically abnormal NOT DETECTED [facility] Comment on above: Result Comment: This test is not yet approved or cleared by the [place] FDA. When there are no FDA-approved or cleared tests available, and other criteria are met, FDA can make tests available under an emergency access mechanism called an Emergency Use Authorization (EUA). The EUA for this test is supported by the Protective Signal Repairer of Health and Human Service's declaration that [...] used). Performed By: #### C VDTBH #### [facility] [address] [place] [address] Dr. Billy Johnson CBC AUTO DIFFon 05-12-2022 BASO # 0.1 103/ul Normal 0.0-0.1 [facility] Comment on above: Performed By: #### C BC #### [facility] [address] [place] [address] Dr. Billy Johnson Basophils/100 WBC (Bld) 0.9 % Normal 0.2-2.0 [facility] Comment on above: Performed By: #### C BC #### [facility] [address] [place] [address] Dr. Billy Johnson EO # 0.2 103/ul Normal 0.0-0.7 [facility] Comment on above: Performed By: #### C BC #### [facility] [address] [place] [address] Dr. Billy Johnson Eosinophils/100 WBC (Bld) 3.6 % Normal 0.9-7.0 [facility] Comment on above: Performed By: #### C BC #### [facility] [address] [place] [address] Dr. Billy Johnson Erythrocyte distribution width (RBC) [Ratio] 12.9 % Normal 11.0-15.0 [facility] Comment on above: Performed By: #### C BC #### [facility] [address] [place] [address] Dr. Billy Johnson Hematocrit (Bld) [Volume fraction] 38.9 % Normal 36.0-48.0 [facility] Comment on above: Performed By: #### C BC #### [facility] [address] [place] [address] Dr. Billy Johnson Hemoglobin (Bld) [Mass/Vol] 13.0 g/dL Normal 12.0-16.0 [facility] Comment on above: Performed By: #### C BC #### [facility] [address] [place] [address] Dr. Billy Johnson IG # 0.02 10e3/ul Normal 0.00-0.03 [facility] Comment on above: Performed By: #### C BC #### [facility] [address] [place] [address] Dr. Billy Johnson IG % 0.4 % Normal 0.0-0.5 [facility] Comment on above: Performed By: #### C BC #### [facility] [address] [place] [address] Dr. Billy Johnson LYMPH # 1.7 103/ul Normal 1.2-3.8 [facility] Comment on above: Performed By: #### C BC #### [facility] [address] [place] [address] Dr. Billy Johnson Lymphocytes/100 WBC (Bld) 30.6 % Normal 20.5-60.0 [facility] Comment on above: Performed By: #### C BC #### [facility] [address] [place] [address] Dr. Billy Johnson MANUAL DIFF REQ NO Normal [facility] Comment on above: Performed By: #### C BC #### [facility] [address] [place] [address] Dr. Billy Johnson MCH (RBC) [Entitic mass] 31.0 pg Normal 26.7-34.0 [facility] Comment on above: Performed By: #### C BC #### [facility] [address] [place] [address] Dr. Billy Johnson MCHC (RBC) [Mass/Vol] 33.4 g/dL Normal 29.9-35.2 [facility] Comment on above: Performed By: #### C BC #### [facility] [address] [place] [address] Dr. Billy Johnson MCV (RBC) [Entitic vol] 92.8 fL Normal 81.0-99.0 [facility] Comment on above: Performed By: #### C BC #### [facility] [address] [place] [address] Dr. Billy Johnson MONO # 0.5 103/ul Normal 0.3-0.8 [facility] Comment on above: Performed By: #### C BC #### [facility] [address] [place] [address] Dr. Billy Johnson Monocytes/100 WBC (Bld) 8.0 % Normal 1.7-12.0 [facility] Comment on above: Performed By: #### C BC #### [facility] [address] [place] [address] Dr. Billy Johnson NEUT # 3.2 103/ul Normal 1.4-6.5 [facility] Comment on above: Performed By: #### C BC #### [facility] [address] [place] [address] Dr. Billy Johnson Neutrophils/100 WBC (Bld) 56.5 % Normal 43.0-75.0 [facility] Comment on above: Performed By: #### C BC #### [facility] [address] [place] [address] Dr. Billy Johnson Platelet mean volume (Bld) [Entitic vol] 10.9 fL Normal 9.5-13.5 [facility] Comment on above: Performed By: #### C BC #### [facility] [address] [place] [address] Dr. Billy Johnson PLT 175 103/ul Normal 150-450 [facility] Comment on above: Performed By: #### C BC #### [facility] [address] [address] [address] Billy Johnson RBC 4.19 106/ul Critically low 4.20-5.40 [facility] Comment on above: Performed By: #### C BC #### [facility] [address] [address] [address] Billy Johnson WBC 5.6 103/ul Normal 4.0-11.0 [facility] Comment on above: Performed By: #### C BC #### [facility] [address] [address] [address] Billy Johnson GLYCOHEMOGLOBIN A1Con 2021 ADA RECOMMENDATION SEE BELOW Normal [facility] Comment on above: Result Comment: ADA RECOMMENDED LIMIT 4.0 - 6.0 ADA THERAPEUTIC TARGET < 7.0 ACTION SUGGESTED > 7.0 Performed By: #### A 1C #### [facility] [address] [place] [address] Dr. Billy Johnson Glucose [Mass/Vol] 108 mg/dL Normal [facility] Comment on above: Performed By: #### A 1C #### [facility] [address] [place] [address] Dr. Billy Johnson HbA1c (Bld) [Mass fraction] 5.4 % Normal 4.5-6.2 [facility] Comment on above: Performed By: #### A 1C #### [facility] [address] [place] [address] Dr. Billy Johnson LIPID PROFILEon 05-12-2022 CHOL-HDL RATIO NORM SEE BELOW Normal [facility] Comment on above: Result Comment: 3.3 - 4.4 LOW RISK 4.4 - 7.1 AVERAGE RISK 7.1 - 11.0 MODERATE RISK >11.0 HIGH RISK Performed By: #### T SH, LIPID, CMP #### [facility] [address] [address] [address] Billy Johnson Cholesterol [Mass/Vol] 200 mg/dL Normal <=200 [facility] Comment on above: Performed By: #### T SH, LIPID, CMP #### [facility] [address] [address] [address] Billy Johnson Cholesterol in HDL [Mass/Vol] 38 mg/dL Critically low 40-60 [facility] Comment on above: Performed By: #### T SH, LIPID, CMP #### [facility] [address] [place] [address] Dr. Billy Johnson Cholesterol in LDL [Mass/Vol] 90.2 mg/dL Normal [facility] Comment on above: Performed By: #### T SH, LIPID, CMP #### [facility] [address] [place] [address] Dr. Billy Johnson Cholesterol.total /Cholesterol in HDL [Mass ratio] 5.3 {ratio} Normal [facility] Comment on above: Performed By: #### T SH, LIPID, CMP #### [facility] [address] [place] [address] Dr. Billy Johnson HDL NORMAL > or = 60 mg/dl - LO W CARDIOVASCULAR RISK <40 mg/dl - HIGH CARDIOVASCULAR RISK Normal [facility] Comment on above: Performed By: #### T SH, LIPID, CMP #### [facility] [address] [place] [address] Dr. Billy Johnson LDL CALC NORMAL SEE BELOW Normal [facility] Comment on above: Result Comment: <100 mg/dl OPTIMAL 100 - 129 mg/dl NEAR OR ABOVE OPTIMAL 130 - 159 mg/dl BORDERLINE HIGH 160 - 189 mg/dl HIGH >190 mg/dl VERY HIGH Performed By: #### T SH, LIPID, CMP #### [facility] [address] [place] [address] Dr. Billy Johnson Triglyceride [Mass/Vol] 359 mg/dL Critically high <=150 [facility] Comment on above: Performed By: #### T SH, LIPID, CMP #### [facility] [address] [address] [address] Billy Johnson VLDL CALC 71.8 mg/dL Normal [facility] Comment on above: Performed By: #### T SH, LIPID, CMP #### [facility] [address] [address] [address] Billy Johnson PROF 14(COMP METB)on 022 Albumin [Mass/Vol] 3.9 g/dL Normal 3.4-5.0 [facility] Comment on above: Performed By: #### T SH, LIPID, CMP #### [facility] [address] [address] [address] Billy Johnson Albumin/Globulin [Mass ratio] 1.2 {ratio} Normal [facility] Comment on above: Performed By: #### T SH, LIPID, CMP #### [facility] [address] [address] [address] Billy Johnson ALP [Catalytic activity/Vol] 41 U/L Critically low 46-116 [facility] Comment on above: Performed By: #### T SH, LIPID, CMP #### [facility] [address] [address] [address] Billy Johnson ALT [Catalytic activity/Vol] 18 U/L Normal 14-59 [facility] Comment on above: Performed By: #### T SH, LIPID, CMP #### [facility] [address] [address] [address] Billy Johnson Anion gap [Moles/Vol] 9.4 mmol/L Normal [facility] Comment on above: Performed By: #### T SH, LIPID, CMP #### [facility] [address] [address] [address] Billy Johnson AST [Catalytic activity/Vol] 13 U/L Critically low 15-37 [facility] Comment on above: Performed By: #### T SH, LIPID, CMP #### [facility] [address] [address] [address] Billy Johnson Bilirubin [Mass/Vol] 0.5 mg/dL Normal 0.2-1.0 [facility] Comment on above: Performed By: #### T SH, LIPID, CMP #### [facility] [address] [address] [address] Billy Johnson Calcium [Mass/Vol] 8.8 mg/dL Normal 8.5-10.1 [facility] Comment on above: Performed By: #### T SH, LIPID, CMP #### [facility] [address] [address] [address] Billy Johnson Chloride [Moles/Vol] 105 mmol/L Normal 98-107 [facility] Comment on above: Performed By: #### T SH, LIPID, CMP #### [facility] [address] [place] [address] Dr. Billy Johnson CO2 [Moles/Vol] 27.7 mmol/L Normal 21.0-32.0 [facility] Comment on above: Performed By: #### T SH, LIPID, CMP #### [facility] [address] [place] [address] Dr. Billy Johnson Creatinine [Mass/Vol] 0.67 mg/dL Normal 0.55-1.02 [facility] Comment on above: Performed By: #### T SH, LIPID, CMP #### [facility] [address] [place] [address] Dr. Billy Johnson EGFR-AF BELIZEAN >60 Normal >=60 [facility] Comment on above: Performed By: #### T SH, LIPID, CMP #### [facility] [address] [place] [address] Dr. Billy Johnson EGFR-NON AF BELIZEAN >60 Normal >=60 [facility] Comment on above: Performed By: #### T SH, LIPID, CMP #### [facility] [address] [place] [address] Dr. Billy Johnson Globulin (S) [Mass/Vol] 3.3 g/dL Normal [facility] Comment on above: Performed By: #### T SH, LIPID, CMP #### [facility] [address] [place] [address] Dr. Billy Johnson Glucose [Mass/Vol] 90 mg/dL Normal 74-106 [facility] Comment on above: Performed By: #### T BHANU LIPID, CMP #### [facility] [address] [place] [address] Dr. Billy Johnson Potassium [Moles/Vol] 4.1 mmol/L Normal 3.5-5.1 [facility] Comment on above: Performed By: #### T BHANU LIPID, CMP #### [facility] [address] [place] [address] Dr. Billy Johnson Protein [Mass/Vol] 7.2 g/dL Normal 6.4-8.2 [facility] Comment on above: Performed By: #### T BHANU LIPID, CMP #### [facility] [address] [place] [address] Dr. Billy Johnson Sodium [Moles/Vol] 138 mmol/L Normal 136-145 [facility] Comment on above: Performed By: #### T BHANU LIPID, CMP #### [facility] [address] [place] [address] Dr. Billy Johnson Urea nitrogen [Mass/Vol] 14.0 mg/dL Normal 7.0-18.0 [facility] Comment on above: Performed By: #### T BHANU LIPID, CMP #### [facility] [address] [place] [address] Dr. Billy Johnson Urea nitrogen/Creatini ne [Mass ratio] 20.9 mg/mg Normal [facility] Comment on above: Performed By: #### T BHANU LIPID, CMP #### [facility] [address] [place] [address] Dr. Billy Johnson TSHon 05-12-2022 TSH 1.434 uIU/mL Normal 0.358-3.74 0 [facility] Comment on above: Performed By: #### T BHANU LIPID, CMP #### [facility] [address] [place] [address] Dr. Billy Johnson Cytologyon 07-21-2017 Cytology (NOTE)[id number] Y LABORATORIESCONSULTING PATHOLOGISTS CORPORATIONANATOMIC [id number] [place] [phone] Fax: GYNECOLOGIC CYTOLOGY REPORTPatient Name: RADHA BLOUNTMR#: [id number] #[id number]:1: Cervical material, (ThinPrep vial, Imaging-assisted review)Clinical [id number] Routine extrusion bender exam without abnormal findingsHigh risk HPV DNA testing is requested if the diagnosis is [id number] Encounter for screening for HPVLMP: not having periodsINTERPRETATIONCervical material, (ThinPrep vial, Imaging-assisted review):Specimen Adequacy: Satisfactory for evaluation. - Endocervical/transformation zone component present. - Partially obscuring exudate.Descriptive Diagnosis: Negative for intraepithelial lesion or malignancy. Manager Of Construction: MAY Cheng(ASCP)Electronically Signed Out07/28/2017 [facility] Vital Signs Date Time Vital Sign Value Performing Clinician Facility 07-13-2024 09:57-0400 Body height 176.53 cm [facility] 07-13-2024 09:57-0400 Body mass index (BMI) [Ratio] 26.3 kg/m2 [facility] 07-13-2024 09:57-0400 Body weight 82.1 kg [facility] 07-13-2024 09:57-0400 Heart rate 70 /min [facility] 07-13-2024 09:57-0400 SaO2% (BldA) [Mass fraction] 98 % [facility] 05-21-2023 10:30-0400 Body height 177.8 cm [employer] Other [employer] Other 05-21-2023 10:30-0400 Body mass index (BMI) [Ratio] 26 kg/m2 [employer] Other [employer] Other 05-21-2023 10:30-0400 Body weight 82.19 kg Bennett [employer] Other [employer] Other 05-21-2023 10:30-0400 Diastolic blood pressure 70 mm[Hg] [employer] Other [employer] Other 05-21-2023 10:30-0400 Respiratory rate 12 /min Bennett Ball Other [employer] Other 05-21-2023 10:30-0400 Systolic blood pressure 113 mm[Hg] Bennett Ball Other [employer] Other 11-26-2022 12:45-0500 Body height 177.8 cm Bennett Ball Other [employer] Other 11-26-2022 12:45-0500 Body mass index (BMI) [Ratio] 25.57 kg/m2 Bennett Ball Other [employer] Other 11-26-2022 12:45-0500 Body weight 80.83 kg Bennett Ball Other [employer] Other 11-26-2022 12:45-0500 Diastolic blood pressure 70 mm[Hg] Bennett Ball Other [employer] Other 11-26-2022 12:45-0500 Respiratory rate 12 /min Bennett Ball Other [employer] Other 11-26-2022 12:45-0500 Systolic blood pressure 116 mm[Hg] Bennett Ball Other [employer] Other Encounters Encounter Date Encounter Type Care Provider Facility Start: 07-13-2024 End: 07-13-2024 ambulatory [facility] Work Phone: Start: 07-13-2024 End: 07-13-2024 Encounter for general adult medical examination without abnormal findings [facility] Start: 07-13-2024 End: 07-13-2024 Patient encounter procedure [facility] Work Phone: Start: 07-10-2024 Patient encounter status [facility] Start: 06-27-2024 Non-patient / Non-visit [facility] Work Phone: Start: 04-22-2024 Non-patient / Non-visit [facility] Work Phone: Start: 11-10-2023 End: 11-10-2023 ambulatory Bennett Ball Other [employer] Other Start: 11-10-2023 Telephone encounter Bennett Ball [facility] Start: 11-08-2023 End: 11-08-2023 ambulatory Bennett Ball Other [employer] Other Start: 11-08-2023 Telephone encounter Bennett Ball [facility] Start: 10-21-2023 End: 10-21-2023 ambulatory Bennett Ball Other [employer] Other Start: 10-21-2023 Telephone encounter Bennett Ball [facility] Start: 05-21-2023 End: 05-21-2023 ambulatory Bennett Ball Other [employer] Other Start: 05-21-2023 Encounter for genera l adult medical examination without abnormal findings Bennett Ball [facility] Start: 05-21-2023 Periodic preventive med est patient 40-64yrs Bennett Ball [facility] Start: 04-06-2023 End: 04-06-2023 ambulatory Bennett Ball Other [employer] Other Start: 04-06-2023 Encounter for genera l adult medical examination without abnormal findings Bennett Ball [facility] Start: 04-06-2023 Telephone encounter Bennett Ball [facility] Start: 03-19-2023 End: 03-19-2023 ambulatory Bennett Ball Other [employer] Other Start: 03-19-2023 Telephone encounter Bennett Ball [facility] Start: 12-04-2022 End: 12-05-[address] BENNETT FIERRO Facility:[facility] Start: 11-26-2022 End: 11-26-2022 ambulatory Bennett Fierro Other [employer] Other Start: 11-26-2022 Office outpatient vi sit 15 minutes Bennett Fierro [facility] Start: 11-26-2022 Telephone encounter Bennett Fierro [facility] Start: 10-07-2022 End: 10-07-2022 ambulatory LUKE GUS Facility:[facility] Start: 2022 End: 05-15-[address] BENNETT FIERRO Facility:[facility] Start: 05-13-2022 Encounter for genera l adult medical examination without abnormal findings DR BENNETT FIERRO [facility] Start: 05-13-2022 Adult health examination Bennett Fierro Other [employer] Other Start: 05-12-2022 End: 05-13-[address] BENNETT FIERRO Facility:[facility] Start: 05-12-2022 End: 05-13-2022 Encounter for general adult medical examination without abnormal findings DR BENNETT FIERRO Facility:[facility] Start: 07-21-2017 End: 07-22-2017 Ambulatory WILLIAM ALFORD [facility] Procedures Date Procedure Procedure Detail Performing Clinician Start: 07-21-2017 Cytopathology proced ure, preparation of smear, genital source WILLIAM ALFORD Depression screening Gerardo Fierro Other Screening for malign ant neoplasm of breast Bennett Fierro Other Plan of Treatment Date Care Activity Detail Author MG Breast - bilateral Screening [facility] Immunizations Immunization Date Immunization Notes Care Provider Fa dusty 05-08-2021 COVID-19 Vaccine Mod caity - Documentation Purposes Only Bennett Fierro Other [facility] Payers Date Payer Category Payer Unknown [id number] 2019 Unknown [id number] 2016 Unknown [id number] 1978 Unknown [id number] [id number] [id number] 1978 Unknown [id number] [id number] [id number] 1978 Unknown [id number] [id number] [id number] 1978 Unknown [id number] [id number] [id number] Social History Date Type Detail Facility Unknown if ever smoked [facility] [employer] Other Sex Assigned At Sex Assigned At Bir th [employer] Other Start: 07-13-2024 Tobacco smoking status NHIS Never smoked tobacco (finding) [facility] Start: 1980 Sex Assigned At Female F [facility] Evaluation note 11-10-2023 Note Date & Type Note Facility 11-10-2023 Evaluation note Encounter Date Diagnosis Assessment Notes Oct, Primary insomnia (ICD-10 - F51.01) [facility] Other Evaluation note 11-08-2023 Note Date & Type Note Facility 11-08-2023 Evaluation note Encounter Date Diagnosis Assessment Notes Oct, Primary insomnia (ICD-10 - F51.01) [facility] Other Evaluation note 05-21-2023 Note Date & [...] or dysphagia - denies melena or hematochezia [facility] Other Evaluation note 04-06-2023 Note Date & Type Note Facility 04-06-2023 Evaluation note Encounter Date Diagnosis Assessment Notes Mar, Wellness examination (ICD-10 - Z00.00) [facility] Other Evaluation note 11-26-2022 Note Date & Type Note Facility 11-26-2022 Evaluation note Encounter Date Diagnosis Assessment Notes Nov, Screening mammogram for breast cancer (ICD-10 - Z12.31) [facility] Other Evaluation note 11-26-2022 Note Date & Type Note Facility 11-26-2022 Evaluation note Encounter Date Diagnosis Assessment Notes Nov, Acute bacterial conjunctivitis of both eyes (ICD-10 - H10.33) Artificial tears as needed, stop Sulfa ophthalmic drops. Begin Ciloxan drops and if no improvement in 48-72 hours call [employer] [employer]. [facility] Other Clinical Note 05-15-2022 Note Date & [...] by: RODOLFO PERAZA Date: 2022-05-15 07:36 [facility] Evaluation note Note Date & Type Note Facility Evaluation note No Information [employer] Other Evaluation note Note Date & Type Note Facility Evaluation note Diagnosis Onset Date Hypothyroid acute Palpitation acute Screening mammogram for breast cancer acute Wellness examination acute [facility] Work Phone: History general Narrative - [...] See Above 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 [employer] Other Summary Purpose Family History Relationship Condition [...] and content) DATE CREATED AUTHOR 04/13/2018 [facility] DATE CREATED AUTHOR AUTHOR'S ORGANIZ ATION 12/10/2022 [facility] REASON FOR VISIT (unrecogniz ed section and content) [facility] OrdersWellnessRefillNo InformationNo Information Care [...] BE BASED ON THE PRIMARY CLINICAL RECORDS. [facility] [employer] [facility]. provides no warranty or guarantee of the accuracy or completeness of information in this document.
[2025-07-14 11:10] LABS: Thyroid Stimulating Hormone 0.515 uIU/mL (0.358-3.740)
== END 2025-07-14 09:52 | disposition home or self-care (01) ==
LOC: LAB 09:52
PROVIDERS: PCP Internal Medicine; Visit Provider Internal Medicine
DX: Z00.00 Encounter for general adult medical examination without abnormal findings (principal)
CPT/HCPCS: 36415; 84443